=== PATIENT | female | born 1950 | race Caucasian/White ===

== ENCOUNTER → 2018-04-06 01:49 | Outpatient (CLI) | payer OTHER, MEDICAID, SELFPAY ==
--- NOTE | 2018-04-06 12:58 | DI.REPORT_ITS ---
SYMPTOM/DIAGNOSIS: SCREENING, Z12.39 MAMMOGRAM Mammograms were interpreted according to the usual protocol including computer analysis with CAD system, tomosynthesis and C view imaging. Breast tissue is of moderate radiodensity. There is no evidence of a mass. There are no suspicious calcifications. There has been no significant interval change when compared with prior images. SUMMARY: No evidence of malignancy. Category 1-B. Yearly screening mammography is recommended. [facility] ASSESSMENT OF FINDINGS: Negative. Category 1. Patient will receive a letter notifying them of these results. BI-RADS category B. There are scattered areas of fibroglandular density.
== END ==
PROVIDERS: PCP Nurse Practitioner; Visit Provider Nurse Practitioner
DX: Z12.31 Encounter for screening mammogram for malignant neoplasm of breast (principal)
CPT/HCPCS: 77063; 77067

== ENCOUNTER → 2018-04-18 13:57 | Outpatient (CLI) | payer OTHER, MEDICAID, SELFPAY ==
--- NOTE | 2018-04-18 14:07 | DI.REPORT_ITS ---
SYMPTOMS/DIAGNOSIS: COUGH, R05 PA AND LATERAL CHEST: Comparison is made with [id number]. The heart size is within normal limits. The lungs are clear. No infiltrate or effusion is seen. There is no evidence of pulmonary edema. There is lower cervical, upper thoracic scoliosis as well as degenerative changes. IMPRESSION: No acute abnormality.
== END ==
PROVIDERS: PCP Nurse Practitioner; Visit Provider Nurse Practitioner
DX: R05 Cough (principal)
CPT/HCPCS: 71046

== ENCOUNTER 2019-05-23 11:32 | Outpatient (REF) | payer OTHER, MEDICAID, SELFPAY ==
[2019-05-23 20:56] LABS: ALT 60 U/L (14-59); AST 23 U/L (15-37); Albumin 3.5 g/dL (3.4-5.0); Alkaline Phosphatase 99 U/L (46-116); Anion Gap 11.9 mmol/L (3-11); BUN 21 mg/dL (7-18); Bilirubin, Total 0.3 mg/dL (0.2-1.0); CO2 27.1 mmol/L (21.0-32.0); CREATININE 0.89 mg/dL (0.55-1.02); Calcium 8.8 mg/dL (8.5-10.1); Calculated LDL 124 mg/dL; Chloride 102 mmol/L (98-107); Cholesterol 216 mg/dL (50-200); Glucose 105 mg/dL (70-100); HDL Cholesterol 71 mg/dL (40-60); Potassium 3.1 mmol/L (3.5-5.1); Sodium 141 mmol/L (136-145); Total Protein 7.3 g/dL (6.4-8.2); Triglyceride 106 mg/dL (30-150)
== END 2019-05-23 11:52 ==
LOC: NCHCN 11:32
PROVIDERS: PCP Nurse Practitioner; Visit Provider Nurse Practitioner
DX: I10 Essential (primary) hypertension (principal); E78.5 Hyperlipidemia, unspecified; Z13.29 Encounter for screening for other suspected endocrine disorder
CPT/HCPCS: 80053; 80061; 84443

== ENCOUNTER 2019-06-21 00:56 | Outpatient (CLI) | payer OTHER, MEDICAID, SELFPAY ==
--- NOTE | 2019-06-21 08:00 | DI.MAMMO_ITS ---
EXAM: MAMMO SCREENING CLINICAL HISTORY: SCREENING, Z12.39. TECHNIQUE: Mammograms were interpreted according to the usual protocol including computer analysis w [employer] CAD system, tomosynthesis and C-view imaging. FINDINGS: The breast tissue is of moderate radiodensity. There is no evidence of a mass. There are no suspicio us calcifications and there has been no significant interval change when compared with prior images. IMPRESSION: No evidence of malignancy, category 1. Breast density, category B. BI-RADS Cat 1 - Negative. Breast Density - Category B - Scattered areas of fibroglandular density.
== END 2019-06-21 01:16 ==
PROVIDERS: PCP Nurse Practitioner; Visit Provider Nurse Practitioner
DX: Z12.31 Encounter for screening mammogram for malignant neoplasm of breast (principal)
CPT/HCPCS: 77063; 77067

== ENCOUNTER 2019-09-20 09:10 | Outpatient (REF) | payer OTHER, MEDICAID, SELFPAY ==
[2019-09-20 12:50] LABS: Anion Gap 8.3 mmol/L (3-11); BUN 12 mg/dL (7-18); CO2 29.7 mmol/L (21.0-32.0); CREATININE 0.74 mg/dL (0.55-1.02); Calcium 8.6 mg/dL (8.5-10.1); Chloride 104 mmol/L (98-107); Glucose 95 mg/dL (74-106); Potassium 3.9 mmol/L (3.5-5.1); Sodium 142 mmol/L (136-145)
[2019-09-20 13:17] LABS: Hemoglobin A1C 5.7 % (3.8-5.6)
== END 2019-09-20 09:30 ==
LOC: NCHCN 09:10
PROVIDERS: PCP Nurse Practitioner; Visit Provider Nurse Practitioner Family
DX: E87.6 Hypokalemia (principal); R73.03 Prediabetes
CPT/HCPCS: 80048; 83036

== ENCOUNTER 2020-08-06 01:19 | Outpatient (CLI) | payer OTHER, MEDICAID, SELFPAY ==
--- NOTE | 2020-08-06 | DI.MAMMO_ITS ---
EXAM: MG MAMMO SCREENING CLINICAL HISTORY: SCREENING,Z12.39. TECHNIQUE: Bilateral full field digital CC and MLO mammographic images were obtained with 3D tomosyn thesis and utilizing computer aided detection (CAD). COMPARISON: Prior mammograms dating back to 2010, the most recent being May 2019. FINDINGS: There are no CAD designations. There are no new dominant masses nor malignant appearing microcalcification groups. There is no new architectural distortion nor skin thickening-retraction. IMPRESSION: No radiographic evidence of malignancy. BI-RADS Category 1 - Negative Breast Density - Category A - Almost entirely fatty Breast density Category C or D implies that the patient has dense breast tissue. Dense breast tissue can make it harder to find cancer on a mammogram. Dense breast tissue is also associated with an incr eased risk of breast cancer. This information about the result of the mammogram report was provided to the patient to raise their awareness. Use this report when you speak with the patient about their risks for breast cancer, which includes their family history. At that time, you may recommend additional screening tests (Ultrasoun d or MRI) as these tests may add significant information. A negative radiographic report should not delay biopsy if a dominant or clinically suspicious mass is present. Up to ten percent of cancers are not identified on mammography. A negative report may reinforce clinical impression. Adenosis and dense breasts may obscure an underlying neoplasm. False positive reports average 6 to 10%. Patient will receive a letter notifying them of these results.
== END 2020-08-06 01:39 ==
PROVIDERS: PCP Nurse Practitioner; Visit Provider Nurse Practitioner
DX: Z12.31 Encounter for screening mammogram for malignant neoplasm of breast (principal)
CPT/HCPCS: 77063; 77067

== ENCOUNTER 2021-08-26 00:12 | Outpatient (CLI) | payer MEDICARE, MEDICAID, SELFPAY ==
--- NOTE | 2021-08-26 12:02 | DI.MAMMO_ITS ---
Exam(s) MAMMO SCREENING EXAM: MAMMO SCREENING CLINICAL HISTORY: SCREENING FOR BREAST CANCER Z12.39. TECHNIQUE: Bilateral full field digital CC and MLO mammographic images were obtained with 3D tomosyn thesis and utilizing computer aided detection (CAD). COMPARISON: Prior mammograms dating back to 2011, the most recent being July 2020. FINDINGS: There are no new spiculated masses nor malignant appearing microcalcification groups. There is no significant architectural distortion nor skin thickening-retraction. IMPRESSION: No radiographic evidence of malignancy. BI-RADS Category 1 - Negative Breast Density - Category B - Scattered areas of fibroglandular density Breast density Category C or D implies that the patient has dense breast tissue. Dense breast tissue can make it harder to find cancer on a mammogram. Dense breast tissue is also associated with an incr eased risk of breast cancer. This information about the result of the mammogram report was provided to the patient to raise their awareness. Use this report when you speak with the patient about their risks for breast cancer, which includes their family history. At that time, you may recommend additional screening tests (Ultrasoun d or MRI) as these tests may add significant information. A negative radiographic report should not delay biopsy if a dominant or clinically suspicious mass is present. Up to ten percent of cancers are not identified on mammography. A negative report may reinforce clinical impression. Adenosis and dense breasts may obscure an underlying neoplasm. False positive reports average 6 to 10%. Patient will receive a letter notifying them of these results.
== END 2021-08-26 00:32 ==
PROVIDERS: PCP Nurse Practitioner; Visit Provider Nurse Practitioner
DX: Z12.31 Encounter for screening mammogram for malignant neoplasm of breast (principal)
CPT/HCPCS: 77063; 77067

== ENCOUNTER 2022-03-02 10:52 | Outpatient (REF) | payer MEDICARE, MEDICAID, SELFPAY ==
[2022-03-02 16:00] LABS: Anion Gap 7.6 mmol/L (3-11); BUN 20 mg/dL (7-18); CO2 29.4 mmol/L (21.0-32.0); CREATININE 0.7 mg/dL (0.55-1.02); Calcium 8.9 mg/dL (8.5-10.1); Calculated LDL 39 mg/dL (<100); Chloride 104 mmol/L (98-107); Cholesterol 126 mg/dL (<200); Glucose 104 mg/dL (74-106); HDL Cholesterol 78 mg/dL (40-60); Potassium 3.4 mmol/L (3.5-5.1); Sodium 141 mmol/L (136-145); Triglyceride 46 mg/dL (<150)
[2022-03-02 18:39] LABS: Hemoglobin A1C 5.8 % (<5.7)
== END 2022-03-02 10:53 | disposition home or self-care (01) ==
LOC: NCHCN 10:52
PROVIDERS: PCP Nurse Practitioner; Visit Provider Nurse Practitioner Family
DX: R73.03 Prediabetes (principal); I10 Essential (primary) hypertension; E78.5 Hyperlipidemia, unspecified
CPT/HCPCS: 80048; 80061; 83036

== ENCOUNTER 2022-08-31 01:31 | Outpatient (CLI) | payer MEDICARE, MEDICAID, SELFPAY ==
--- NOTE | 2022-08-31 | DI.MAMMO_ITS ---
Exam(s) MAMMO SCREENING EXAM: MAMMO SCREENING CLINICAL HISTORY: SCREENING FOR BREAST CANCER Z12.39. TECHNIQUE: Bilateral full field digital CC and MLO mammographic images were obtained with 3D tomosyn thesis and utilizing computer aided detection (CAD). COMPARISON: Prior mammograms were reviewed. FINDINGS: There has been no significant change in the appearance and distribution of the fibroglandular tissue. There are no new spiculated masses nor malignant appearing microcalcification groups. Benign-appearing microcalcifications in the left breast are noted. There is no significant architectural distortion nor skin thickening-retraction. IMPRESSION: No radiographic evidence of malignancy. BI-RADS Category 2 - Benign Findings Breast Density - Category B - Scattered areas of fibroglandular density Breast density Category C or D implies that the patient has dense breast tissue. Dense breast tissue can make it harder to find cancer on a mammogram. Dense breast tissue is also associated with an incr eased risk of breast cancer. This information about the result of the mammogram report was provided to the patient to raise their awareness. Use this report when you speak with the patient about their risks for breast cancer, which includes their family history. At that time, you may recommend additional screening tests (Ultrasoun d or MRI) as these tests may add significant information. A negative radiographic report should not delay biopsy if a dominant or clinically suspicious mass is present. Up to ten percent of cancers are not identified on mammography. A negative report may reinforce clinical impression. Adenosis and dense breasts may obscure an underlying neoplasm. False positive reports average 6 to 10%. Patient will receive a letter notifying them of these results.
== END 2022-08-31 01:51 ==
LOC: DI 01:32
PROVIDERS: PCP Nurse Practitioner; Visit Provider Nurse Practitioner Family
DX: Z12.31 Encounter for screening mammogram for malignant neoplasm of breast (principal)
CPT/HCPCS: 77063; 77067

== ENCOUNTER 2023-03-29 11:46 | Outpatient (REF) | payer MEDICARE, MEDICAID, SELFPAY ==
[2023-03-29 19:02] LABS: Hemoglobin A1C 5.8 % (<5.7)
[2023-03-29 21:09] LABS: ALT 26 U/L (14-59); AST 19 U/L (15-37); Albumin 3.7 g/dL (3.4-5.0); Alkaline Phosphatase 65 U/L (46-116); Anion Gap 8.5 mmol/L (3-11); BUN 24 mg/dL (7-18); Bilirubin, Total 0.6 mg/dL (0.2-1.0); CO2 25.5 mmol/L (21.0-32.0); CREATININE 0.8 mg/dL (0.55-1.02); Calcium 9.1 mg/dL (8.5-10.1); Calculated LDL 54 mg/dL (<100); Chloride 106 mmol/L (98-107); Cholesterol 145 mg/dL (<200); Estimated GFR 78.72 (mL/min/1.73m2); Glucose 99 mg/dL (74-106); HDL Cholesterol 82 mg/dL (40-60); Potassium 3.9 mmol/L (3.5-5.1); Sodium 140 mmol/L (136-145); Triglyceride 48 mg/dL (<150)
== END 2023-03-29 11:47 | disposition home or self-care (01) ==
LOC: NCHCN 11:46
PROVIDERS: PCP Nurse Practitioner; Visit Provider Nurse Practitioner Family
DX: I10 Essential (primary) hypertension (principal); R73.03 Prediabetes; E87.6 Hypokalemia
CPT/HCPCS: 80053; 80061; 83036

== ENCOUNTER → 2023-04-29 00:48 | Outpatient (CLI) | payer MEDICARE, MEDICAID, SELFPAY ==
--- NOTE | 2023-04-29 14:30 | DI.DEXA_ITS ---
Exam(s) XR DEXA BONE DENSITY W/WO GILBERT EXAM: XR DEXA BONE DENSITY W/WO GILBERT CLINICAL HISTORY: OSTEOPENIA, M85.80, POSTMENOPAUSAL Z78.0 TECHNIQUE: COMPARISON: DX DEXA BONE DENSITY WITH GILBERT from 09/21/2016 FINDINGS: Lateral Spine Image: Unremarkable. No compression deformities identified. Left hip: Total T-Score: -1.8. This compares to -1.2 on the prior examination. Total Z-Score: -0.2 T- and Z-scores: Findings are consistent with osteopenia. Lumbar Spine: Total T-Score: -2.3. This compares to -2.4 on the prior examination. Total Z-Score: -0.1 T- and Z-scores: Findings are consistent with osteopenia. Note is made of osteoporosis in the L2 and L3 vertebral bodies with T-scores of -2.7 and -3.0 respectively. IMPRESSION: Osteoporosis in the L2 and L3 vertebral bodies.
== END ==
PROVIDERS: PCP Nurse Practitioner; Visit Provider Nurse Practitioner Family
DX: Z78.0 Asymptomatic menopausal state (principal); Z13.820 Encounter for screening for osteoporosis; M81.0 Age-related osteoporosis without current pathological fracture
CPT/HCPCS: 77080

== ENCOUNTER → 2023-08-04 13:56 | Outpatient (CLI) | payer MEDICARE, MEDICAID, SELFPAY ==
--- NOTE | 2023-08-04 | DI.US_ITS ---
Exam(s) US LOWER EXTREMITY VENOUS LT EXAM: US LOWER EXTREMITY VENOUS LT CLINICAL HISTORY: PAIN LT LEG, M79.605,? THROMBOSIS VS THROMBOPHLEBITIS. TECHNIQUE: Lower extremity venous ultrasound performed using grayscale, color-flow, and spectral Do ppler analysis. COMPARISON: No exams were available for comparison FINDINGS: The common femoral, femoral and popliteal veins demonstrate normal compressibility, augmentation, and color Doppler. The posterior tibial veins are patent. The saphenous vein shows thrombus extending f rom the proximal calf through the saphenofemoral junction. Other thrombosed varicose veins are also present in the distal thigh.. No hematoma or Lazaro's cyst is seen. 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 No deep venous thrombosis.. DATA REPOSITORY:
== END ==
PROVIDERS: PCP Nurse Practitioner Family; Visit Provider Physician Assistant Medical
DX: I82.812 Embolism and thrombosis of superficial veins of left lower extremity (principal); M79.605 Pain in left leg
CPT/HCPCS: 93971

== ENCOUNTER 2023-08-04 15:12 | Outpatient (CLI) | payer MEDICARE, MEDICAID, SELFPAY ==
[2023-08-04 12:51] LABS: Abs Immature Grans 0.01 10^3/uL (0.0-0.06); Absolute Basophil Count 0.03 10^3/uL (0.0-0.2); Absolute Eosinophil Count 0.08 10^3/uL (0.0-0.7); Absolute Monocyte Count 0.61 10^3/uL (0.1-0.8); Absolute Neutrophil Count 4.64 10^3/uL (1.2-6.7); Basophils % 0.4; Eosinophils % 1.1; HCT 39.3 % (36.0-46.0); HGB 12.9 g/dL (11.2-15.7); Immature Grans % 0.1; Lymphocytes % 25.1; MCHC 32.8 % (32.0-36.0); MCV 82 fL (80-95); MPV 10.2 fL (8.0-11.0); Monocytes % 8.5; Neutrophils % 64.8; Platelet Count 201 10^3/uL (130-400); RBC 4.78 10^6/uL (3.93-5.22); RDW 12.3 % (11.7-14.6); RDW-SD 37.4 fL; WBC 7.17 10^3/uL (4.4-10.8)
[2023-08-04 13:09] LABS: ALT 34 U/L (14-59); AST 15 U/L (15-37); Albumin 3.6 g/dL (3.4-5.0); Alkaline Phosphatase 99 U/L (46-116); Anion Gap 11.2 mmol/L (3-11); BUN 25 mg/dL (7-18); Bilirubin, Total 0.4 mg/dL (0.2-1.0); CO2 28.8 mmol/L (21.0-32.0); CREATININE 0.8 mg/dL (0.55-1.02); Calcium 9.7 mg/dL (8.5-10.1); Chloride 102 mmol/L (98-107); Estimated GFR 78.24 (mL/min/1.73m2); Glucose 111 mg/dL (74-106); Potassium 4.1 mmol/L (3.5-5.1); Sodium 142 mmol/L (136-145)
== END 2023-08-04 15:13 | disposition home or self-care (01) ==
LOC: LBO 15:12
PROVIDERS: PCP Nurse Practitioner Family; Visit Provider Physician Assistant Medical
DX: M79.605 Pain in left leg (principal)
CPT/HCPCS: 36415; 80053; 85025

== ENCOUNTER → 2023-09-28 01:16 | Outpatient (CLI) | payer MEDICARE, MEDICAID, SELFPAY ==
--- NOTE | 2023-09-28 | DI.MAMMO_ITS ---
Exam(s) MAMMO SCREENING EXAM: MAMMO SCREENING CLINICAL HISTORY: SCREENING,Z12.39 TECHNIQUE: Bilateral full field digital CC and MLO mammographic images were obtained with 3D tomosyn thesis and utilizing computer aided detection (CAD). COMPARISON: Available for comparison. FINDINGS: Masses/Architectural Distortion: There is a new 4 mm nodule in the medial right breast appreciated on the CC view 7 cm from the nipple. No areas of architectural distortion are seen. Microcalcifications: No suspicious pleomorphic-type are seen. Skin Thickening/Nipple Retraction: None. IMPRESSION: 1. New right breast nodule. 2. Spot compression views requested for further evaluation. Limited right breast ultrasound may be r equired at that time. BI-RADS Category 0 - Assessment Incomplete: Need additional imaging evaluation Breast Density - Category B - Scattered areas of fibroglandular density Breast density category C or D implies that the patient has dense breast tissue. Dense breast tissue is very common and is not abnormal but dense breast tissue can make it harder to find cancer on a ma mmogram. Also, dense breast tissue may increase their breast cancer risk. This information about the result of the mammogram report was provided to the patient to raise their awareness. Use this report when you speak with the patient about their risks for breast cancer, which includes their family hist ory. At that time, you may recommend for more screening tests (Ultrasound or MRI) as they might be us eful based on their risk. A negative radiographic report should not delay biopsy if a dominant or clinically suspicious mass is present. Up to ten percent of cancers are not identified on mammography. A negative report may reinforce clinical impression. Adenosis and dense breasts may obscure an underlying neoplasm. False positive reports average 6 to 10%. Patient will receive a letter notifying them of these results.
== END ==
PROVIDERS: PCP Nurse Practitioner Family; Visit Provider Nurse Practitioner Family
DX: Z12.31 Encounter for screening mammogram for malignant neoplasm of breast (principal); R92.8 Other abnormal and inconclusive findings on diagnostic imaging of breast
CPT/HCPCS: 77063; 77067

== ENCOUNTER → 2023-09-29 10:26 | Outpatient (CLI) | payer MEDICARE, MEDICAID, SELFPAY ==
--- NOTE | 2023-09-29 | DI.US_ITS ---
Exam(s) MG MAMMO SCREEN CALL BACK UNI US BREAST RT COMPLETE EXAM: MG MAMMO SCREEN CALL BACK UNI-RIGHT AND COMPLETE RIGHT BREAST ULTRASOUND CLINICAL HISTORY: F/U ABNL MAMMO, NEW RT BREAST NODULE, R92.8. TECHNIQUE: Unilateral spot mammographic images obtained with 3D tomosynthesisand utilizing computer aided detection (CAD). . Complete RIGHT breast Ultrasound was also performed, including all 4 quadrants, the retroareolar [place] on, and the ipsilateral axilla. COMPARISON: Prior mammograms were reviewed. This additional imaging was performed due to findings described on the recent screening mammogram of 09/28/2023. FINDINGS: DIAGNOSTIC MAMMOGRAM: Additional mammographic views performed todaydo not completely dissipate this small finding. COMPLETE RIGHT BREAST ULTRASOUND: Ultrasound performed today reveals no evidence of solid or significant cystic lesions in all 4 quadra nts.. Scanning of the ipsilateral axilla reveals no significant adenopathy. IMPRESSION: 1. Benign-appearing findings. Given lack of visualization of the small benign-appearing nodule on u ltrasound it may represent a benign intramammary lymph node. Appropriate follow-up as discussed by myself with the patient today is repeat right breast mammogram in 6 months. The patient was informed of these findings and recommendations by myself prior to leaving the departm ent today. BI-RADS Category 3 - 6 month - Probably Benign Finding: Recommend follow-up mammography in 6 months Breast Density - Category B - Scattered areas of fibroglandular density Breast density Category C or D implies that the patient has dense breast tissue. Dense breast tissue can make it harder to find cancer on a mammogram. Dense breast tissue is also associated with an incr eased risk of breast cancer. This information about the result of the mammogram report was provided to the patient to raise their awareness. Use this report when you speak with the patient about their risks for breast cancer, which includes their family history. At that time, you may recommend additional screening tests (Ultrasoun d or MRI) as these tests may add significant information. A negative radiographic report should not delay biopsy if a dominant or clinically suspicious mass is present. Up to ten percent of cancers are not identified on mammography. A negative report may reinforce clinical impression. Adenosis and dense breasts may obscure an underlying neoplasm. False positive reports average 6 to 10%. Patient will receive a letter notifying them of these results.
== END ==
PROVIDERS: PCP Nurse Practitioner Family; Visit Provider Nurse Practitioner Family
DX: Z12.31 Encounter for screening mammogram for malignant neoplasm of breast (principal); R92.8 Other abnormal and inconclusive findings on diagnostic imaging of breast
CPT/HCPCS: 76642; 77063; 77067

== ENCOUNTER → 2023-11-17 03:05 | Outpatient (CLI) | payer MEDICARE, MEDICAID, SELFPAY ==
--- NOTE | 2023-11-17 | DI.RAD_ITS ---
Exam(s) XR HIP RT COMPLETE AP PELVIS EXAM: XR HIP RT COMPLETE AP PELVIS CLINICAL HISTORY: RT HIP PAIN, M25.551. TECHNIQUE: 2D digital imaging was performed. Two views COMPARISON: No exams were available for comparison FINDINGS: BONES: No acute fracture is present. No bony destructive lesion is seen. JOINTS: No dislocation present. The joint spaces are maintained. Minimal periarticular spurring. S I joints show minimal degenerative changes. Pubic symphysis is unremarkable. SOFT TISSUE: Normal. IMPRESSION: No acute abnormality. Minimal degenerative changes. DATA REPOSITORY: RADIATION DOSE DELIVERED:
== END ==
PROVIDERS: PCP Nurse Practitioner Family; Visit Provider Nurse Practitioner Family
DX: M25.551 Pain in right hip (principal)
CPT/HCPCS: 73502

== ENCOUNTER 2023-11-25 10:10 | Day surgery (SDC) | payer MEDICARE, MEDICAID, SELFPAY ==
[2023-11-25 10:45] VITALS: BP 164/87; PULSE 87; RESP 20; TEMP 36.4; O2SAT 98
--- NOTE | 2023-11-25 11:51 | W.ANESPRE ---
General Info Date of Service Date Performed: 11/25/23 Height: 5 ft 1 in Weight: 81.6 kg Body Mass Index (BMI): 34.0 Surgical Procedure: Operation Date: 11/25/23 12:10 Proposed Procedure Side Surgeon p Cataract Extraction with IOL Implant w/Glaucoma Stent Left Reji Turner MD Meds Allergies and Home Medications Allergies Allergy/AdvReac Type Severity Reaction Status Date / Time chlorpheniramine Allergy Intermediate Hives Verified 11/25/23 10:54 [From Coricidin HBP Cough and Cold] dextromethorphan Allergy Intermediate Hives Verified 11/25/23 10:54 [From Coricidin HBP Cough and Cold] sulfamethoxazole Allergy Intermediate Skin Rash Verified 11/25/23 10:54 [From Bactrim] trimethoprim [From Bactrim] Allergy Intermediate Skin Rash Verified 11/25/23 10:54 lisinopril AdvReac Cough Verified 11/25/23 10:54 Home Medication Medication Instructions Recorded alendronate 70 mg tablet 70 mg PO DIRECTED 11/23/23 calcium carb and lactate 200 1 tab PO DAILY 11/23/23 mg-vitamin D3 6.25 mcg (250 unit) tablet hydrochlorothiazide 25 mg tablet 25 mg PO DAILY 11/23/23 latanoprost 0.005 % eye drops 1 drp ophthalmic (eye) QAM 11/23/23 losartan 25 mg tablet 25 mg PO DAILY 11/23/23 omega 3 350 mg-dha 235 mg-epa 90 1 cap PO DAILY 11/23/23 mg-fish oil 597 mg capsule,delay rel ([place]-3) rosuvastatin 20 mg tablet 20 mg PO DAILY 11/23/23 Current Visit Medications: Current Medications Generic Name Dose Route Start Last Admin Trade Name Freq PRN Reason Stop Dose Admin Acetaminophen 1,000 mg 11/25/23 06:00 Acetaminophen 500 Mg Tab PO 12/25/23 05:59 Q4H PRN PRN Balanced Salt Solution 500 ml 11/25/23 06:00 Balanced Salt Soln.-Plus 500 Ml Bag OP 12/25/23 05:59 DIRECTED ALESHIA Miscellaneous Medication 0 ml 11/25/23 06:00 Prednisolone 1%, Moxifloxacin 0.5%, Bromfenac 0.09% 5ml Btl OS 12/25/23 05:59 DIRECTED ALESHIA Miscellaneous Medication 0 ml 11/25/23 06:00 11/25/23 11:07 Tropicam./Phenyleph. (1/2.5%) 10 Ml Btl OS 12/25/23 05:59 1 drp DIRECTED ALESHIA Administration Tetracaine HCl 0 ml 11/25/23 06:00 Tetracaine 0.5% 4 Ml Btl OS 12/25/23 05:59 DIRECTED ALESHIA PFSH Active Problems Active Problems: Problem Status Onset Code Primary open angle glaucoma (POAG) of left eye, mild stage H40.1121 Nuclear age-related cataract, left eye H25.12 Allergic rhinitis due to allergen J30.9 Glaucoma H40.9 Second hand smoke exposure Z77.22 Throat clearing R68.89 Cough R05 Impacted cerumen of right ear H61.21 Post-nasal drip R09.82 Medical History Medical History Varicose veins of both lower extremities Chronic rhinitis Prediabetes Chronic cough Essential hypertension Adjustment disorder with anxious mood Hypokalemia Thrombosis of vein LE Senile osteoporosis Tobacco Smoking/Tobacco Use Status: Never Alcohol Alcohol Intake: never Substance Use Substance use: Never Substance use type: does not use Vital Signs and Lab Results Vital Signs Most Recent Vital Signs in EMR: Most Recent Vital Signs Temp Pulse Resp BP Pulse Ox 36.4 C L 87 20 164/87 H 98 11/25/23 10:45 11/25/23 10:45 11/25/23 10:45 11/25/23 10:45 11/25/23 10:45 Lab Results Blood Type / Crossmatch: No Data to Display Complete Blood Count: No Data to Display Complete Metabolic Panel: No Data to Display Liver Function Panel: No Data to Display Coagulation Panel: No Data to Display Cardiac Panel: No Data to Display Arterial Blood Gas: No Data to Display Venous Blood Gas: No Data to Display Pancreas Panel: No Data to Display Thyroid Panel: No Data to Display Infectious Disease: No Data to Display Blood Cultures: No Data to Display Toxicology Panel: No Data to Display Anesthesia Assessment and Plan Anesthesia History Personal History: No History of Anesthesia Complications Family History: No Family History of Anesthesia Complications Exercise Tolerance Exercise Tolerance: Metabolic Equivalents>4 Cardiac & Pulmonary Exam Cardiac Exam: Normal S1/S2 Heart Sounds Pulmonary Exam: Clear Bilateral Breath Sounds Implantable Cardiac Device Does patient have a Pacemaker or an ICD?: No Airway Exam Known Difficult Airway: No Mallampati Class: 1 Mouth Opening: Normal (> 3cm) Thyromental Distance: Greater than 3 cm Neck Range of Motion: Full ROM Neck Circumference: Normal Teeth Condition: Normal Dentition ASA Classification ASA Score: ASA 2 Emergency Case?: No NPO Status NPO Status: NPO Clears >2 hours, Solids >8 hours Anesthesia Plan Resuscitation Status: Full Code Anesthesia Technique: MAC Anesthesia Airway Planned: Natural Airway Monitors Used: Standard Monitors
[2023-11-25 12:07] VITALS: BMI 34.0
[2023-11-25] MEDS: Balanced Salt Soln.-PLUS 500 ML BAG OP (12:24)
[2023-11-25] MEDS: Tetracaine 0.5% 4 ML BTL OS (12:25)
[2023-11-25] MEDS: Duovisc Viscoelastic System EACH 1 EACH (12:26)
[2023-11-25] MEDS: Lidocaine 1% Pres-Free 5 ML VIAL (12:26)
[2023-11-25] MEDS: Povidone-Iodine Ophth 30 ML BTL (12:28)
[2023-11-25 12:46] VITALS: BP 154/75; PULSE 36; RESP 16; TEMP 36; O2SAT 100
--- NOTE | 2023-11-25 12:47 | PDOC.DSDIS_ITS ---
Date of service: 11/25/23 Time of Service: 12:47 Discharge Plan Disposition Patient Disposition: Home Discharge Details Attending Provider: Reji Turner Primary Care Provider: Lana Griffith Home Meds and New Rx's Prescriptions: No Action alendronate 70 mg tablet 70 mg PO DIRECTED Patient Comments: TAKE 1 TABLET BY MOUTH ONCE WEEKLY FIRST THING IN THE MORNING WITH WATER BEFORE EATING AND STAY UPRIGHT FOR 30 MINUTES hydrochlorothiazide 25 mg tablet 25 mg PO DAILY Patient Comments: TAKE ONE TABLET BY MOUTH EVERY DAY rosuvastatin 20 mg tablet 20 mg PO DAILY Patient Comments: TAKE ONE TABLET BY MOUTH EVERY DAY losartan 25 mg tablet 25 mg PO DAILY Patient Comments: TAKE ONE TABLET BY MOUTH EVERY DAY latanoprost 0.005 % drops 1 drp ophthalmic (eye) QAM Patient Comments: INSTILL 1 DROP IN EACH EYE EVERY MORNING [place]-3 350 mg-235 mg- 90 mg-597 mg capsule,delayed release(DR/EC) 1 cap PO DAILY calcium carb,lactat-vitamin D3 200 mg-6.25 mcg (250 unit) tablet 1 tab PO DAILY Discharge Instructions Stand Alone Forms: [facility] Post-Op Cataract, Matthew Guardado ([facility]) Discharge Orders Discharge Orders: Discharge Order (Routine); Ordered 11/25/23 Ordered By: Reji Turner DS: Diagnosis Discharge Diagnosis (1) Nuclear age-related cataract, left eye: Status: Resolved (2) Primary open angle glaucoma (POAG) of left eye, mild stage: Status: Chronic
--- NOTE | 2023-11-25 12:48 | W.PM.OP ---
Date of service: 11/25/23 Time of Service: 12:48 Operative Note Operative Note DATE OF PROCEDURE: 11/25/23 PRE-OP DIAGNOSIS: Nuclear cataract, left eye Primary open-angle glaucoma, left eye, mild stage POST-OP DIAGNOSIS: same PROCEDURE: Cataract extraction using phacoemulsification with intraocular lens implant, left eye Implantation of mulitple trabecular micro-bypass stents SURGEON: Reji Turner ANESTHESIA TYPE: Local By Surgeon and MAC Refer to Anesthesia Record PATHOLOGY: none sent COMPLICATIONS: None Patient was transported to: same day Patient's condition: stable Implants: Jonathon Clareon [id number] Glaukos iStents Indications: Progressive decreased vision due to cataract, left eye Primary open angle glaucoma, left eye Procedure Description: CATARACT SURGERY OPERATIVE REPORT PREOPERATIVE DIAGNOSIS: Nuclear cataract, left eye Primary open-angle glaucoma, mild stage, left eye POSTOPERATIVE DIAGNOSIS: Same OPERATION: 1. Cataract extraction using phacoemulsification with posterior chamber intraocular lens implant, left eye. 2. Insertion of multiple anterior segment aqueous drainage devices (Glaukos iStent) into trabecular meshwork, left eye IOL: IOL Medical Assistant/Model: Jonathon Clareon CCA0T0 IOL Power: + 18.0 diopters IOL Serial Number: [id number] Optic Diameter: 6.0mm Haptic/Overall Diameter: 13.0mm PHACO INFO: Jonathon Centurion Vision System with OZil and Active Fluidics Cumulative Dispersed Energy (CDE): 6.44 seconds TRABECULAR MICRO-BYPASS STENT INFO: Glaukos iStent x 3 Reference Number: iS3 Serial Number: [id number] SURGEON: Reji Turner MD, HAL ANESTHESIA: Monitored Anesthesia Care (MAC), with local sub-tenon's anesthetic infiltration COMPLICATIONS: None SPECIMENS: None INDICATIONS FOR PROCEDURE: The patient is a 73-year-old lady with history of progressive decreased vision in her left eye secondary to the development of nuclear cataract. She is significantly symptomatic that she desires cataract surgery and attempt to improve and maximize her vision. She has a history of myopia and desires to remain myopic postoperatively. She has a history of primary open-angle glaucoma, mild stage, treated with latanoprost daily. The option of trabecular micro-bypass stent at the time of cataract surgery was offered to the patient and she wished to proceed with this as well. See office notes for detailed information. PROCEDURE: The correct surgical eye was identified and marked as the left eye and the pupil was dilated in the preoperative area using mydriatics and cycloplegics. The dilated pupil size was 8.0 mm. The patient was brought to the operating room where cardiopulmonary monitoring was instituted and surgical time-out was performed, confirming the correct operative eye and IOL power. Topical anesthesia was administered and ophthalmic povidone-iodine 5% was instilled into the conjunctival fornices. The gume-ocular area was prepped with Betadine 10% solution and draped in the usual sterile fashion for intraocular surgery, including an aperture drape. A Tegaderm transparent film dressing was cut in half and used to cover the lashes and lid margins. Care was taken to sequester the lashes and lid margins under the Tegaderm dressing. A lid speculum was placed between the lids of the operative eye and the Jonathon LuxOR Revalia operating microscope was maneuvered into position. Anson scissors were then used to make a conjunctival buttonhole approximately 6mm posterior to the limbus in the inferonasal quadrant. Blunt dissection was carried out to expose bare sclera, and a blunt-tipped sub-tenon?s anesthesia cannula was introduced and passed posteriorly along the globe where non-preserved plain lidocaine was injected into posterior sub-Tenon?s space. A sideport knife was used to make a paracentesis port superiorly/superiortemporally. Intraocular phenylephrine/lidocaine was injected into the anterior chamber. The anterior chamber was then filled with viscoelastic. A keratome knife was used to construct a clear corneal tunnel extending 2.0mm into clear cornea. . A flap was raised on the anterior capsule and capsulorhexis forceps were used to complete a continuous curvilinear capsulorhexis of 5.5 mm. Balanced salt solution was then used to perform cortical cleaving hydrodissection and nuclear hydrodelineation until the lens could be freely rotated within the capsular bag. The lens nucleus was then disassembled and removed within the capsular bag and iris plane using phacoemulsification. Residual cortical material was removed using the 45-degree angled silicone I/A tip with 0.3mm port. The posterior capsule was carefully polished to remove as much residual lens epithelial cells as safely possible. The capsular bag was then inflated and the anterior chamber deepened with viscoelastic. The lens implant described above was inserted into the capsular bag using the Jonathon Autonome pre-loaded injector. A Kuglen hook was used to dial the IOL into position. The anterior chamber was then slightly over-filled with viscoelastic. The microsope and the patient's head were tilted into the ideal position for viewing of the anterior chamber angle. Viscoelastic was placed on the cornea followed by a surgical gonionlens, and the anterior chamber angle landmarks were identified. The [employer] iStent injection handpiece was introduced into the anterior chamber and the insertion sleeve was retracted. The trocar was advanced through the central portion of the trabecular meshwork and into the back wall of Schlemm's canal in the nasal quadrant, with care taken to ensure the micro-insertion tube was perpendicular to the trabecular meshwork. The trabecular meshwork was lightly dimpled and the stent was injected without difficulty. The same procedure was then performed in the inferiornasal quradrant. A third stent was then injected into the superiornasal quadrant. The stents were then examined and noted to be in good position within the trabecular meshwork. A moderate amount of blood reflux was present through the stent apertures. The microscope and the patients head were returned to the normal coaxial position. Viscoelatic was then removed from the anterior chamber using the I/A handpiece. Blanching of the deep conjunctival vessels was noted nasally during removal of viscoelastic. Some hemorrhage had migrated into the anterior vitreous. The lens implant was noted to center nicely within the capsular bag. The incisions were stromally hydrated, and the anterior chamber was reformed using BSS. Then 0.5cc of moxifloxacin 1.0mg/ml were injected into the capsular bag and anterior chamber. The incisions were checked with a Weck spear and found to be secure. Several drops of ophthalmic povidone-iodine 5% were then applied to the eye followed by two drops of Imprimis combination prednisolone/moxifloxacin/nepafenac solution. The drapes were removed and a clear plastic protective eye shield was placed over the eye. The patient was then returned to Same Day Surgery in stable condition..
--- NOTE | 2023-11-25 13:54 | W.ANESPOSTOP ---
Postoperative Evaluation Date, Time and Location Date Performed: 11/25/23 Time Performed: 12:50 Patient Location: Day Surgery Unit Vital Signs Most Recent Imported Vital Signs: Most Recent Vital Signs Temp Pulse Resp BP Pulse Ox 36 C L 36 L 16 154/75 H 100 11/25/23 12:46 11/25/23 12:46 11/25/23 12:46 11/25/23 12:46 11/25/23 12:46 Pain Score Most Recent Pain Score: Most Recent Pain Score Pain Level 0 11/25/23 12:46 Assessment Mental Status: Awake (Alert & Oriented to Patient Baseline) Airway and Respiratory Function: Patent airway with normal (patient baseline) respiratory exam Cardiovascular Function: Hemodynamically Stable Hydration Status: Adequately Hydrated Nausea & Vomiting: No Nausea or Vomiting Pain: Pt. Denies Any Pain Peripheral Nerve Block: Patient did not receive a nerve block
== END 2023-11-25 12:58 | disposition home or self-care (01) ==
LOC: SUR 10:10
PROVIDERS: PCP Nurse Practitioner Family; Visit Provider Ophthalmology
PROC: (CPT 66991; principal; 2023-11-25 12:00)
DX: H25.12 Age-related nuclear cataract, left eye (principal); H40.1121 Primary open-angle glaucoma, left eye, mild stage
CPT/HCPCS: 66991; 00123; V2632; J2003

== ENCOUNTER 2024-03-14 11:57 | Outpatient (REF) | payer MEDICARE, MEDICAID, SELFPAY ==
[2024-03-14 16:43] LABS: Abs Immature Grans 0.01 10^3/uL (0.0-0.06); Absolute Basophil Count 0.03 10^3/uL (0.0-0.2); Absolute Eosinophil Count 0.07 10^3/uL (0.0-0.7); Absolute Lymphocyte Count 1.71 10^3/uL (1.2-3.4); Absolute Monocyte Count 0.26 10^3/uL (0.1-0.8); Absolute Neutrophil Count 2.38 10^3/uL (1.2-6.7); Basophils % 0.7 %; Eosinophils % 1.6 %; HCT 38.8 % (36.0-46.0); Immature Grans % 0.2 %; Lymphocytes % 38.3 %; MCH 27.5 pg (27.0-33.0); MCHC 33.5 % (32.0-36.0); MCV 82 fL (80-95); MPV 11.4 fL (8.0-11.0); Monocytes % 5.8 %; Neutrophils % 53.4 %; Platelet Count 174 10^3/uL (130-400); RBC 4.73 10^6/uL (3.93-5.22); RDW-SD 39.1 fL; WBC 4.46 10^3/uL (4.4-10.8)
[2024-03-14 17:29] LABS: ALT 30 U/L (14-59); AST 19 U/L (15-37); Albumin 3.7 g/dL (3.4-5.0); Alkaline Phosphatase 55 U/L (46-116); Anion Gap 7.6 mmol/L (3-11); BUN 26 mg/dL (7-18); Bilirubin, Total 0.56 mg/dL (0.2-1.0); CO2 28.4 mmol/L (21.0-32.0); CREATININE 0.8 mg/dL (0.55-1.02); Calcium 8.8 mg/dL (8.5-10.1); Calculated LDL 44 mg/dL (<100); Chloride 107 mmol/L (98-107); Cholesterol 135 mg/dL (<200); Estimated GFR 78.24 (mL/min/1.73m2); Glucose 103 mg/dL (74-106); HDL Cholesterol 83 mg/dL (40-60); Potassium 3.5 mmol/L (3.5-5.1); Sodium 143 mmol/L (136-145); Total Protein 7.1 g/dL (6.4-8.2); Triglyceride 42 mg/dL (<150)
[2024-03-14 20:22] LABS: Hemoglobin A1C 5.8 % (<5.7)
== END 2024-03-14 11:58 | disposition home or self-care (01) ==
LOC: NCHCN 11:57
PROVIDERS: Visit Provider Nurse Practitioner Family
DX: I10 Essential (primary) hypertension (principal); E78.5 Hyperlipidemia, unspecified; R73.03 Prediabetes
CPT/HCPCS: 80053; 80061; 83036; 85025

== ENCOUNTER → 2024-03-29 02:16 | Outpatient (CLI) | payer MEDICARE, MEDICAID, SELFPAY ==
--- NOTE | 2024-03-29 | DI.MAMMO_ITS ---
Exam(s) MG MAMMO DIAGNOSTIC UNI EXAM: MG MAMMO DIAGNOSTIC UNI CLINICAL HISTORY: 6-mo f/u abnl mammo, R92.8, rt side TECHNIQUE: Cc and MLO mammogram images were performed according to the usual protocol including computer analysis with CAD system, tomosynthesis and C-view imaging. COMPARISON: 2016 through 28 September 2023. FINDINGS: The breast is composed of scattered fibroglandular densities, Breast Density category B. No suspicious masses or suspicious microcalcifications are seen. Previously question tiny nodule in the medial right breast no longer appreciated. No skin thickening or abnormal axillary lymph nodes are seen. IMPRESSION: BI-RADS Category 1, Negative mammogram Yearly screening mammography is recommended, due in 6 months. Breast Density - Category B, scattered fibroglandular densities. A negative radiographic report should not delay biopsy if a dominant or clinically suspicious mass is present. Up to ten percent of cancers are not identified on mammography. A negative report may reinforce clinical impression. Adenosis and dense breasts may obscure an underlying neoplasm. False positive reports average 6 to 10%. Patient will receive a letter notifying them of these results.
== END ==
PROVIDERS: Visit Provider Nurse Practitioner Family
DX: R92.8 Other abnormal and inconclusive findings on diagnostic imaging of breast (principal)
CPT/HCPCS: 77061; 77065; G0279

== ENCOUNTER 2024-09-11 14:12 | Outpatient (REF) | payer MEDICARE, MEDICAID, SELFPAY ==
[2024-09-11 19:08] LABS: Hemoglobin A1C 5.6 % (<5.7)
[2024-09-11 19:10] LABS: ALT 40 U/L (14-59); AST 22 U/L (15-37); Albumin 3.7 g/dL (3.4-5.0); Alkaline Phosphatase 66 U/L (46-116); BUN 25 mg/dL (7-18); Bilirubin, Total 0.67 mg/dL (0.2-1.0); CREATININE 0.9 mg/dL (0.55-1.02); Calcium 9.3 mg/dL (8.5-10.1); Calculated LDL 80 mg/dL (<100); Chloride 106 mmol/L (98-107); Cholesterol 180 mg/dL (<200); Glucose 100 mg/dL (74-106); HDL Cholesterol 89 mg/dL (40-60); Potassium 3.8 mmol/L (3.5-5.1); Sodium 139 mmol/L (136-145); Total Protein 7.2 g/dL (6.4-8.2); Triglyceride 55 mg/dL (<150)
== END 2024-09-11 14:13 | disposition home or self-care (01) ==
LOC: NCHCN 14:12
PROVIDERS: PCP Nurse Practitioner Family; Visit Provider Nurse Practitioner Family
DX: E78.5 Hyperlipidemia, unspecified (principal)
CPT/HCPCS: 80053; 80061; 83036

== ENCOUNTER → 2024-09-26 09:12 | Outpatient (BNVA) | payer MEDICARE, MEDICAID, SELFPAY | PROVIDERS: PCP Nurse Practitioner Family; Referring Provider Nurse Practitioner Family; Visit Provider Podiatrist | DX: M21.611 Bunion of right foot (principal); M21.612 Bunion of left foot; M20.41 Other hammer toe(s) (acquired), right foot; M20.42 Other hammer toe(s) (acquired), left foot; L84 Corns and callosities; L60.3 Nail dystrophy; M67.01 Short Achilles tendon (acquired), right ankle; M67.02 Short Achilles tendon (acquired), left ankle; B35.1 Tinea unguium | CPT/HCPCS: 99204 ==

== ENCOUNTER 2024-09-26 09:49 | Outpatient (CLI) | payer MEDICARE, MEDICAID, SELFPAY ==
--- NOTE | 2024-09-26 09:50 | DI.RAD_ITS ---
Exam(s) XR FOOT RT COMPLETE EXAM: XR FOOT RT COMPLETE CLINICAL HISTORY: bunion rt foot, M21.611. TECHNIQUE: 2D digital imaging was performed of the right foot. Three images were obtained. AP, obl ique and lateral views were obtained. COMPARISON: No exams were available for comparison FINDINGS: BONES: No acute fracture is present. No bony destructive lesion is seen. There is an enthesophyte at the posterior calcaneus. There is a small plantar calcaneal spur. JOINTS: No dislocation present. There is a hallux valgus deformity. There is overlapping of the 1st and 2nd toes. Hammertoe deformities of the 2nd through 5th toes are noted. There are degenerative c hanges of the foot predominantly at the 1st MTP joint and the 1st tarsometatarsal joint. SOFT TISSUE: Normal. IMPRESSION: Degenerative changes of the foot, hallux valgus deformity and hammertoe deformities. DATA REPOSITORY: RADIATION DOSE DELIVERED:
--- NOTE | 2024-09-26 09:50 | DI.RAD_ITS ---
Exam(s) XR FOOT LT COMPLETE EXAM: XR FOOT LT COMPLETE CLINICAL HISTORY: Randal, lt foot, M21.612. TECHNIQUE: 2D digital imaging was performed of the left foot. Three images were obtained. AP, obli que and lateral views were obtained. COMPARISON: No exams were available for comparison FINDINGS: BONES: No acute fracture is present. No bony destructive lesion is seen. There are hammertoe deformit ies seen of the 2nd and 3rd toes. There is an enthesophyte at the posterior calcaneus. There is a s mall plantar calcaneal spur. JOINTS: No dislocation present. There is a hallux valgus deformity. Degenerative changes are seen in the foot particularly at the 1st MTP joint and the 3rd tarsometatarsal joint. SOFT TISSUE: Normal. IMPRESSION: Hallux valgus deformity, hammertoe deformities and degenerative changes. DATA REPOSITORY: RADIATION DOSE DELIVERED:
== END 2024-09-26 10:09 ==
PROVIDERS: PCP Nurse Practitioner Family; Visit Provider Podiatrist
DX: M20.12 Hallux valgus (acquired), left foot (principal); M19.071 Primary osteoarthritis, right ankle and foot
CPT/HCPCS: 73630

== ENCOUNTER 2024-10-01 00:37 | Outpatient (CLI) | payer MEDICARE, MEDICAID, SELFPAY ==
--- NOTE | 2024-10-01 | DI.MAMMO_ITS ---
Exam(s) MAMMO SCREENING EXAM: MAMMO SCREENING CLINICAL HISTORY: Screening, Z12.31 TECHNIQUE: Mammograms were interpreted according to the usual protocol including computer analysis w [employer] CAD system, tomosynthesis and C-view imaging. COMPARISON: 2016 through 2023 FINDINGS: The breasts are composed of scattered fibroglandular densities, Breast Density category B. No suspicious masses or suspicious microcalcifications are seen. No skin thickening or abnormal axillary lymph nodes are seen. There has been no significant change from prior exams. IMPRESSION: BI-RADS Category 1, Negative mammogram Yearly screening mammography is recommended. Breast Density - Category B, scattered fibroglandular densities. A negative radiographic report should not delay biopsy if a dominant or clinically suspicious mass is present. Up to ten percent of cancers are not identified on mammography. A negative report may reinforce clinical impression. Adenosis and dense breasts may obscure an underlying neoplasm. False positive reports average 6 to 10%. Patient will receive a letter notifying them of these results.
== END 2024-10-01 00:57 ==
LOC: DI 00:37
PROVIDERS: PCP Nurse Practitioner Family; Visit Provider Nurse Practitioner Family
DX: Z12.31 Encounter for screening mammogram for malignant neoplasm of breast (principal); R92.323 Mammographic fibroglandular density, bilateral breasts
CPT/HCPCS: 77063; 77067

== ENCOUNTER 2025-03-07 01:14 | Outpatient (CLI) | payer MEDICARE, MEDICAID, SELFPAY ==
--- NOTE | 2025-03-07 | DI.US_ITS ---
Exam(s) US LOWER EXTREMITY VENOUS LT EXAM: US LOWER EXTREMITY VENOUS LT CLINICAL HISTORY: LT LOWER EXT SWELLING,H/O PHLEBITIS 08/04/23,60.0 TECHNIQUE: Grayscale, color, and doppler imaging of the deep venous system of the left lower extremity was performed. COMPARISON: US US BREAST RT COMPLETE from 09/29/2023 FINDINGS: There is no evidence of intraluminal thrombus and there is normal compression and augmentation demonstrated within the common femoral vein, femoral vein, and popliteal vein. In the ipsilateral calf the interrogated veins also exhibit normal compression/ augmentation properties. The ipsilateral saphenofemoral junction is patent. IMPRESSION: 1. No evidence of DVT in the left lower extremity. DATA REPOSITORY:
== END 2025-03-07 01:34 ==
PROVIDERS: PCP Nurse Practitioner Family; Visit Provider Student in an Organized Health Care Education/Training Program
DX: R60.0 Localized edema (principal)
CPT/HCPCS: 93971

== ENCOUNTER 2025-03-13 02:51 | Outpatient (CLI) | payer MEDICARE, MEDICAID, SELFPAY ==
[2025-03-13 13:54] LABS: ALT 26 U/L (14-59); AST 15 U/L (15-37); Albumin 3.8 g/dL (3.4-5.0); Alkaline Phosphatase 68 U/L (46-116); Anion Gap 11.0 mmol/L (3-11); BUN 30 mg/dL (7-18); Bilirubin, Total 0.5 mg/dL (0.2-1.0); CO2 27.0 mmol/L (21.0-32.0); Calcium 9.4 mg/dL (8.5-10.1); Chloride 103 mmol/L (98-107); Estimated GFR 77.75 (mL/min/1.73m2); Glucose 99 mg/dL (74-106); Magnesium 1.9 mg/dL (1.8-2.4); Potassium 3.3 mmol/L (3.5-5.1); Sodium 141 mmol/L (136-145); Total Protein 7.3 g/dL (6.4-8.2)
== END 2025-03-13 02:52 | disposition home or self-care (01) ==
LOC: LBO 02:52
PROVIDERS: PCP Nurse Practitioner Family; Visit Provider Student in an Organized Health Care Education/Training Program
DX: I10 Essential (primary) hypertension (principal)
CPT/HCPCS: 36415; 80053; 83735

== ENCOUNTER 2025-05-20 19:37 | Outpatient (CLI) | payer MEDICARE, MEDICAID, SELFPAY ==
--- NOTE | 2025-05-20 | DI.RAD_ITS ---
Exam(s) XR ANKLE LT COMPLETE EXAM: XR ANKLE LT COMPLETE CLINICAL HISTORY: M25.572 Pain ankle joints LT foot,medial malleolus wound,RO Osteomyelitis TECHNIQUE: 2D digital imaging was performed. Three views. COMPARISON: No exams were available for comparison FINDINGS: BONES: No acute fracture is present. No bony destructive lesion is seen. Enthesophyte posterior calcaneus. Small plantar spur. JOINTS:The ankle mortise is normally aligned. SOFT TISSUE: No marked soft tissue swelling. No foreign body. No visible gas collection. IMPRESSION: Soft tissue swelling. No bony abnormality. DATA REPOSITORY: RADIATION DOSE DELIVERED:
== END 2025-05-20 19:57 ==
LOC: DI 19:37
PROVIDERS: PCP Student in an Organized Health Care Education/Training Program; Visit Provider Student in an Organized Health Care Education/Training Program
DX: M25.572 Pain in left ankle and joints of left foot (principal)
CPT/HCPCS: 73610

== ENCOUNTER 2025-05-20 20:02 | Outpatient (CLI) | payer MEDICARE, MEDICAID, SELFPAY ==
[2025-05-20 11:59] LABS: HCT 39.7 % (36.0-46.0); HGB 13.1 g/dL (11.2-15.7); MCH 27.1 pg (27.0-33.0); MCHC 33.0 % (32.0-36.0); MCV 82 fL (80-95); MPV 10.8 fL (8.0-11.0); Platelet Count 213 10^3/uL (130-400); RBC 4.84 10^6/uL (3.93-5.22); RDW 12.7 % (11.7-14.6); RDW-SD 38.0 fL; WBC 6.93 10^3/uL (4.4-10.8)
[2025-05-20 12:01] LABS: ESR 7 mm/hr (0-30)
[2025-05-20 12:24] LABS: ALT 24 U/L (14-59); AST 16 U/L (15-37); Albumin 3.8 g/dL (3.4-5.0); Alkaline Phosphatase 75 U/L (46-116); Anion Gap 6.8 mmol/L (3-11); BUN 17 mg/dL (7-18); Bilirubin, Total 0.5 mg/dL (0.2-1.0); CO2 31.2 mmol/L (21.0-32.0); Calcium 9.9 mg/dL (8.5-10.1); Chloride 104 mmol/L (98-107); Estimated GFR 77.27 (mL/min/1.73m2); Glucose 109 mg/dL (74-106); Potassium 3.9 mmol/L (3.5-5.1); Sodium 142 mmol/L (136-145); Total Protein 7.6 g/dL (6.4-8.2)
[2025-05-20 12:25] LABS: C-Reactive Protein < 0.50 mg/dL (<or=0.5)
== END 2025-05-20 20:03 | disposition home or self-care (01) ==
LOC: LBO 20:02
PROVIDERS: PCP Student in an Organized Health Care Education/Training Program; Visit Provider Student in an Organized Health Care Education/Training Program
DX: L03.90 Cellulitis, unspecified (principal)
CPT/HCPCS: 36415; 80053; 85027; 85652; 86140

== ENCOUNTER → 2025-05-23 08:31 | Outpatient (BNVA) | payer MEDICARE, MEDICAID, SELFPAY | PROVIDERS: PCP Student in an Organized Health Care Education/Training Program; Referring Provider Student in an Organized Health Care Education/Training Program; Visit Provider Podiatrist | DX: Z51.89 Encounter for other specified aftercare (principal); L97.922 Non-pressure chronic ulcer of unspecified part of left lower leg with fat layer exposed; I83.023 Varicose veins of left lower extremity with ulcer of ankle; L03.116 Cellulitis of left lower limb | CPT/HCPCS: 11042; 29580; 29850 ==

== ENCOUNTER 2025-05-23 08:58 | Outpatient (REF) | payer MEDICARE, MEDICAID, SELFPAY | END 2025-05-23 08:59 | disposition home or self-care (01) | LOC: LBN 08:58 | PROVIDERS: PCP Student in an Organized Health Care Education/Training Program; Visit Provider Podiatrist | DX: S91.002A Unspecified open wound, left ankle, initial encounter (principal) | CPT/HCPCS: 87077; 87070; 87075; 87205 ==

== ENCOUNTER 2025-05-27 08:42 | Emergency (ER) | payer MEDICARE, MEDICAID, SELFPAY ==
[2025-05-27 08:44] VITALS: BP 170/76; PULSE 94; RESP 15; TEMP 36.8; O2SAT 99
[2025-05-27 08:48] VITALS: BP 170/76; PULSE 94; RESP 15; TEMP 36.8; O2SAT 99
--- NOTE | 2025-05-27 08:57 | W.ED.GENAD ---
Discharge Plan Disposition Patient Disposition: Home Discharge Details Clinical Impression: Ulcer of left lower extremity Primary Care Provider: Dereje Ugarte ED Provider: Leroy George Home Meds and New Rx's Prescriptions: Continued ketoconazole 2 % cream 1 applic topical DAILY Qty: 120 6RF Rx Instructions: Apply to toenails once daily Santyl 250 unit/gram ointment 1 applic topical DAILY Qty: 90 0RF Rx Instructions: 1.5 x 2.5 x 0.3 cm alendronate 70 mg tablet 70 mg PO DIRECTED Patient Comments: TAKE 1 TABLET BY MOUTH ONCE WEEKLY FIRST THING IN THE MORNING WITH WATER BEFORE EATING AND STAY UPRIGHT FOR 30 MINUTES hydrochlorothiazide 25 mg tablet 25 mg PO DAILY Patient Comments: TAKE ONE TABLET BY MOUTH EVERY DAY losartan 25 mg tablet 25 mg PO DAILY Patient Comments: TAKE ONE TABLET BY MOUTH EVERY DAY [place]-3 350 mg-235 mg- 90 mg-597 mg capsule,delayed release(DR/EC) 1 cap PO DAILY calcium carb,lactat-vitamin D3 200 mg-6.25 mcg (250 unit) tablet 1 tab PO DAILY rosuvastatin 20 mg tablet 10 mg PO DAILY Patient Comments: TAKE ONE TABLET BY MOUTH EVERY DAY Discharge Instructions Additional Instructions: You are seen in the emergency department for your ulcer. As we discussed if you develop fevers chills nausea or vomiting please return to the emergency department. Otherwise please follow-up with podiatry as previously scheduled in 2 days. Discharge Data Discharge Date/Time-TO BE ENTERED AT DEPARTURE: 05/27/25 09:42 HPI General Date/Time Provider Initiated Documentation: 05/27/25 08:56. HPI Narrative: MDM This is an overall very well-appearing normothermic and not tachycardic 75-year-old female with left lower extremity ulcer lacking signs of superinfection for which she will be discharged with an empiric trial of expectant outpatient management. No pain out of proportion to suggest necrotizing soft tissue infection. Based on shallow ulcer I am not concerned for osteomyelitis but I did not feel patient required an MRI. Left foot is warm and well-perfused so I am not concerned for critical limb ischemia so I do not feel patient requires a CT angiogram of her abdomen pelvis with runoffs. In the absence of trauma my suspicion for any acute osseous abnormalities with low so I did not feel that the patient required an x-ray. No rash to lower extremity to suggest zoster. No fluctuance to suggest abscess. No significant erythema nor warmth to suggest superimposed cellulitis show I felt that the benefits of observation off of antibiotics outweighed the risk. Patient I discussed that she should return to the emergency department if she developed any fevers nausea vomiting or streaking signs of infection. She had a Gram stain performed last week showing no white blood cells rare epithelial cells very rare gram-positive cocci and scant growth of Staphylococcus stimulans. Given recent treatment with doxycycline will defer further antibiotics. Patient has outpatient podiatry follow-up in 2 days. She understood her return indications of discharge with empiric trial of expectant outpatient management. I sent a message to Dr. Coulter advising her that the patient was in the ED. HPI This is a patient presenting with a wound and ulcer on the left leg. The patient has been experiencing a wound and ulcer on the left leg for approximately 4 weeks. Initially, she consulted Dr. Cristian Kincaid, who advised her not to remove the scab and prescribed doxycycline for 10 days, which the patient completed yesterday. Five days ago, she saw Dr. Coulter, who instructed her to keep the wound covered. The patient has been using a compression sock intermittently but removed it for this visit. She reports no fever, vomiting, or nausea. She is not diabetic and does not smoke cigarettes. The patient can move her ankle without difficulty, although it is sore. She recalls the onset of the wound as a small piece of skin protruding, which she pulled off. Exam General: Well-appearing in no acute distress speaking in complete sentences. Head: Normocephalic, atraumatic. Eye: Extraocular eye movements intact. No conjunctival injection. No scleral icterus. Ear, nose, mouth, throat: Grossly normal inspection. Normal voice, handling secretions normally. Neck: Trachea midline. Cardiovascular: Well-perfused distal extremities. Respiratory: Nonlabored respiration. Gastrointestinal: Nondistended abdomen. Musculoskeletal: On the left lower extremity just superior to the left medial malleolus there is a healing approximately 2 cm ulcer. It is shallow base. There is no purulence. There is no significant surrounding erythema. No drainage. No fluctuance. Intact PT and DP pulses. 5 out of 5 left lower extremity strength in dorsi and plantarflexion. Skin: Normal for age and race, grossly normal temperature and turgor. No acute rash. Neurologic: Alert and appropriate, no apparent acute deficits. Psychiatric: Mood and manner are appropriate. Grooming and personal hygiene are appropriate. Related Data Home Medications ?Medication ?Instructions ?Recorded ?Confirmed alendronate 70 mg tablet 70 mg PO DIRECTED 11/23/23 05/27/25 calcium carb and lactate 200 1 tab PO DAILY 11/23/23 05/27/25 mg-vitamin D3 6.25 mcg (250 unit) tablet hydrochlorothiazide 25 mg tablet 25 mg PO DAILY 11/23/23 05/27/25 losartan 25 mg tablet 25 mg PO DAILY 11/23/23 05/27/25 omega 3 350 mg-dha 235 mg-epa 90 1 cap PO DAILY 11/23/23 05/27/25 mg-fish oil 597 mg capsule,delay rel ([place]-3) ketoconazole 2 % topical cream 1 applic topical DAILY #120 grams 09/26/24 05/27/25 rosuvastatin 20 mg tablet 10 mg PO DAILY 05/22/25 05/27/25 collagenase clostridium histo. 250 1 applic topical DAILY #90 grams 05/23/25 05/27/25 unit/gram topical ointment (Santyl) Previous Rx's ?Medication ?Instructions ?Recorded ketoconazole 2 % topical cream 1 applic topical DAILY #120 grams 09/26/24 collagenase clostridium histo. 250 1 applic topical DAILY #90 grams 05/23/25 unit/gram topical ointment (Santyl) Allergies Allergy/AdvReac Type Severity Reaction Status Date / Time chlorpheniramine (From Allergy Intermediate Hives Verified 05/27/25 08:50 Coricidin HBP Cough and Cold) dextromethorphan (From Allergy Intermediate Hives Verified 05/27/25 08:50 Coricidin HBP Cough and Cold) sulfamethoxazole (From Allergy Intermediate Skin Rash Verified 05/27/25 08:50 Bactrim) trimethoprim (From Bactrim) Allergy Intermediate Skin Rash Verified 05/27/25 08:50 lisinopril AdvReac Cough Verified 05/27/25 08:50 General Stated Complaint: Cellulitis MARIELENA: 4 Course Vital Signs Vital signs: Vital Signs Temperature 36.8 C 05/27/25 08:44 Pulse 94 H 05/27/25 08:44 Respiratory Rate 15 05/27/25 08:44 Blood Pressure 170/76 H 05/27/25 08:44 Pulse Oximetry 99 05/27/25 08:44 Temperature 36.8 C 05/27/25 08:48 Temperature Source Oral 05/27/25 08:48 Pulse 94 H 05/27/25 08:48 Respiratory Rate 15 05/27/25 08:48 Blood Pressure 170/76 H 05/27/25 08:48 Blood Pressure Position Sitting 05/27/25 08:48 Pulse Oximetry 99 05/27/25 08:48 Oxygen Delivery Method Room Air 05/27/25 08:48 Oxygen Flow Rate 0 05/27/25 08:48 Pain Level 4 05/27/25 08:48 PFSH All Active Problems (Updated 05/27/25 @ 09:22 by Leroy George MD) Ulcer of left lower extremity (Acute) Nonhealing ulcer of left lower extremity (Acute) Chronic ulcer of left foot (Acute) Cellulitis (Acute) 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 (Acute) Hallux valgus (Acute) Bunion (Acute) Varicose veins of both lower extremities (Acute) Essential hypertension (Acute) Hypokalemia (Acute) Thrombosis of vein (Acute) LE Adjustment disorder with anxious mood (Acute) Senile osteoporosis (Acute) Prediabetes (Acute) Achilles tendon contracture, bilateral (Acute) Nail dystrophy (Acute) Corns and callosities (Acute) Hammertoe, bilateral (Acute) Bunion, right foot (Acute) Bunion, left foot (Acute) Primary open angle glaucoma (POAG) of left eye, mild stage (Chronic) Allergic rhinitis due to allergen (Acute) Glaucoma (Chronic) Second hand smoke exposure (Acute) Throat clearing (Acute) Cough (Acute) Impacted cerumen of right ear (Acute) Post-nasal drip (Acute) Medical History Left ankle pain Hip joint pain Chronic rhinitis Chronic cough Social History Smoking/Tobacco Use Status: Never Smoking risk assessment performed?: Yes Alcohol Intake: never Drug use: Never Substance use type: does not use Housing: house Do you feel safe at home: Yes Do you feel safe in your relationship?: Yes
== END 2025-05-27 09:42 | disposition home or self-care (01) ==
PROVIDERS: Emergency Provider Emergency Medicine; PCP Student in an Organized Health Care Education/Training Program
DX: L97.529 Non-pressure chronic ulcer of other part of left foot with unspecified severity (principal)
CPT/HCPCS: 99281; 99282

== ENCOUNTER → 2025-05-29 08:31 | Outpatient (BNVA) | payer MEDICARE, MEDICAID, SELFPAY | PROVIDERS: PCP Student in an Organized Health Care Education/Training Program; Referring Provider Student in an Organized Health Care Education/Training Program; Visit Provider Podiatrist | DX: Z51.89 Encounter for other specified aftercare (principal); I83.023 Varicose veins of left lower extremity with ulcer of ankle; L97.922 Non-pressure chronic ulcer of unspecified part of left lower leg with fat layer exposed; L03.116 Cellulitis of left lower limb | CPT/HCPCS: 99215; 29580; 29850 ==

== ENCOUNTER 2025-05-31 15:25 | Outpatient (REF) | payer MEDICARE, MEDICAID, SELFPAY ==
[2025-05-31 16:54] LABS: Abs Immature Grans 0.01 10^3/uL (0.0-0.06); HCT 37.8 % (36.0-46.0); HGB 12.4 g/dL (11.2-15.7); Immature Grans % 0.1 %; MCH 27.0 pg (27.0-33.0); MCHC 32.8 % (32.0-36.0); MCV 82 fL (80-95); MPV 11.2 fL (8.0-11.0); Platelet Count 211 10^3/uL (130-400); RBC 4.59 10^6/uL (3.93-5.22); RDW 12.8 % (11.7-14.6); RDW-SD 38.6 fL; WBC 6.93 10^3/uL (4.4-10.8)
[2025-05-31 17:18] LABS: ALT 27 U/L (14-59); AST 19 U/L (15-37); Albumin 3.5 g/dL (3.4-5.0); Alkaline Phosphatase 74 U/L (46-116); Anion Gap 11.3 mmol/L (3-11); BUN 26 mg/dL (7-18); Bilirubin, Total 0.4 mg/dL (0.2-1.0); CO2 25.7 mmol/L (21.0-32.0); Calcium 8.6 mg/dL (8.5-10.1); Chloride 103 mmol/L (98-107); Estimated GFR 90.70 (mL/min/1.73m2); Glucose 110 mg/dL (74-106); Potassium 3.4 mmol/L (3.5-5.1); Sodium 140 mmol/L (136-145); Total Protein 7.4 g/dL (6.4-8.2)
== END 2025-05-31 15:26 | disposition home or self-care (01) ==
LOC: NCHCN 15:25
PROVIDERS: PCP Student in an Organized Health Care Education/Training Program
DX: Z01.818 Encounter for other preprocedural examination (principal)
CPT/HCPCS: 80053; 85025

== ENCOUNTER 2025-06-03 12:20 | Day surgery (SDC) | payer MEDICARE, MEDICAID, SELFPAY ==
[2025-06-03 12:38] VITALS: BP 169/80; PULSE 89; RESP 16; TEMP 36.1; O2SAT 98
[2025-06-03] MEDS: Lactated Ringers 1,000 ML 80 ML IV (12:49)
--- NOTE | 2025-06-03 13:39 | W.ANESPRE ---
General Info Date of Service Date Performed: 06/03/25 Height: 5 ft 1 in Weight: 84.7 kg Body Mass Index (BMI): 35.2 Surgical Procedure: Operation Date: 06/03/25 13:10 Proposed Procedure Side Surgeon p Excisional Wound Debridement- Leg Left Rohini Granados DPM Meds Allergies and Home Medications Allergies Allergy/AdvReac Type Severity Reaction Status Date / Time chlorpheniramine (From Allergy Intermediate Hives Verified 06/03/25 12:42 Coricidin HBP Cough and Cold) dextromethorphan (From Allergy Intermediate Hives Verified 06/03/25 12:42 Coricidin HBP Cough and Cold) sulfamethoxazole (From Allergy Intermediate Skin Rash Verified 06/03/25 12:42 Bactrim) trimethoprim (From Bactrim) Allergy Intermediate Skin Rash Verified 06/03/25 12:42 lisinopril AdvReac Cough Verified 06/03/25 12:42 Home Medication ?Medication ?Instructions ?Recorded alendronate 70 mg tablet 70 mg PO DIRECTED 11/23/23 calcium carb and lactate 200 1 tab PO DAILY 11/23/23 mg-vitamin D3 6.25 mcg (250 unit) tablet hydrochlorothiazide 25 mg tablet 25 mg PO DAILY 11/23/23 losartan 25 mg tablet 25 mg PO DAILY 11/23/23 omega 3 350 mg-dha 235 mg-epa 90 1 cap PO DAILY 11/23/23 mg-fish oil 597 mg capsule,delay rel ([place]-3) ketoconazole 2 % topical cream 1 applic topical DAILY #120 grams 09/26/24 rosuvastatin 20 mg tablet 10 mg PO DAILY 05/22/25 collagenase clostridium histo. 250 1 applic topical DAILY #90 grams 05/23/25 unit/gram topical ointment (Santyl) amoxicillin 500 mg-potassium 1 tab PO BID 7 days #14 tabs 05/29/25 clavulanate 125 mg tablet (Augmentin) Current Visit Medications: Current Medications Generic Name Dose Route Start Last Admin Trade Name Freq PRN Reason Stop Dose Admin Ringer's Solution 1,000 mls @ 80 mls/hr 06/03/25 06:00 06/03/25 12:49 IV 06/30/25 23:59 80 mls/hr INFUSION ALESHIA Administration Cefazolin Sodium/Dextrose 2 gm in 50 mls @ 100 mls/hr 06/03/25 06:00 Ancef Duplex IVPB 06/30/25 23:59 PREOP ALESHIA IV Miscellaneous Supplies 1 each 06/03/25 06:00 Iv Access IV 06/30/25 23:59 DIRECTED ALESHIA Sodium Chloride 0 ml 06/03/25 06:00 Normal Saline Flush 10 Ml Syr IV 06/30/25 23:59 PRN PRN Sodium Chloride 0 ml 06/03/25 06:00 Normal Saline 10 Ml Vial IJ 06/30/25 23:59 DIRECTED PRN Sterile Water 0 ml 06/03/25 06:00 Water,Injection,Sterile 10 Ml Vial IJ 06/30/25 23:59 DIRECTED PRN PFSH Active Problems Active Problems: Problem Status Onset Code Ulcer of left lower extremity Acute L97.929 Nonhealing ulcer of left lower extremity Acute L97.929 Chronic ulcer of left foot Acute L97.529 Cellulitis Acute L03.90 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 Acute I83.029, L97.922 Hallux valgus Acute M20.10 Bunion Acute M21.619 Varicose veins of both lower extremities Acute I83.93 Essential hypertension Acute I10 Hypokalemia Acute E87.6 Thrombosis of vein Acute I82.90 Adjustment disorder with anxious mood Acute F43.22 Senile osteoporosis Acute M81.0 Prediabetes Acute R73.03 Achilles tendon contracture, bilateral Acute M67.01, M67.02 Nail dystrophy Acute L60.3 Corns and callosities Acute L84 Hammertoe, bilateral Acute M20.41, M20.42 Bunion, right foot Acute M21.611 Bunion, left foot Acute M21.612 Primary open angle glaucoma (POAG) of left eye, mild stage Chronic H40.1121 Nuclear age-related cataract, left eye Resolved H25.12 Allergic rhinitis due to allergen Acute J30.9 Glaucoma Chronic H40.9 Second hand smoke exposure Acute Z77.22 Throat clearing Acute R68.89 Cough Acute R05 Impacted cerumen of right ear Acute H61.21 Post-nasal drip Acute R09.82 Medical History Medical History Left ankle pain Hip joint pain Chronic rhinitis Chronic cough Tobacco Smoking/Tobacco Use Status: Never Passive smoking exposure: No Alcohol Alcohol Intake: never Substance Use Substance use: Never Substance use type: does not use Vital Signs and Lab Results Vital Signs Most Recent Vital Signs in EMR: Most Recent Vital Signs Temp Pulse Resp BP Pulse Ox 36.1 C L 89 16 169/80 H 98 06/03/25 12:38 06/03/25 12:38 06/03/25 12:38 06/03/25 12:38 06/03/25 12:38 Lab Results Complete Blood Count: WBC, (4.4-10.8) 6.93 10^3/uL 05/31/25, 11:00 RBC, (3.93-5.22) 4.59 10^6/uL 05/31/25, 11:00 Hgb, (11.2-15.7) 12.4 g/dL 05/31/25, 11:00 Hct, (36.0-46.0) 37.8 % 05/31/25, 11:00 Plt Count, (130-400) 211 10^3/uL 05/31/25, 11:00 Complete Metabolic Panel: Sodium, (136-145) 140 mmol/L 05/31/25, 11:00 Potassium, (3.5-5.1) 3.4 mmol/L L 05/31/25, 11:00 Chloride, (98-107) 103 mmol/L 05/31/25, 11:00 Carbon Dioxide, (21.0-32.0) 25.7 mmol/L 05/31/25, 11:00 BUN, (7-18) 26 mg/dL H 05/31/25, 11:00 Creatinine, (0.55-1.02) 0.7 mg/dL 05/31/25, 11:00 Est GFR (CKD-EPI 2020), (mL/min/1.73m2) 90.70 05/31/25, 11:00 Calcium, (8.5-10.1) 8.6 mg/dL 05/31/25, 11:00 Albumin, (3.4-5.0) 3.5 g/dL 05/31/25, 11:00 Glucose, (74-106) 110 mg/dL H 05/31/25, 11:00 C-Reactive Protein, (<or=0.5) < 0.50 mg/dL 05/20/25, 11:40 Liver Function Panel: ALT, (14-59) 27 U/L 05/31/25, 11:00 AST, (15-37) 19 U/L 05/31/25, 11:00 Anesthesia Assessment and Plan Anesthesia History Personal History: No History of Anesthesia Complications Family History: No Family History of Anesthesia Complications Exercise Tolerance Exercise Tolerance: Metabolic Equivalents>4 Pertinent Negatives Pertinent Negatives: No Symptoms of GERD Cardiac & Pulmonary Exam Cardiac Exam: Heart Murmur Present (benign) Pulmonary Exam: Clear Bilateral Breath Sounds Implantable Cardiac Device Does patient have a Pacemaker or an ICD?: No Airway Exam Known Difficult Airway: No Mallampati Class: 2 Mouth Opening: Normal (> 3cm) Thyromental Distance: Greater than 3 cm Neck Range of Motion: Full ROM Neck Circumference: Normal Teeth Condition: Normal Dentition ASA Classification ASA Score: ASA 2 Emergency Case?: No NPO Status NPO Status: NPO Clears >2 hours, Solids >8 hours Anesthesia Plan Resuscitation Status: Full Code Anesthesia Technique: General Anesthesia Airway Planned: Natural Airway Monitors Used: Standard Monitors
[2025-06-03 14:21] VITALS: BMI 35.2
[2025-06-03] MEDS: ceFAZolin 2 GM/50 ML BAG IVPB (14:52)
[2025-06-03] MEDS: Lidocaine 1% Pres-Free 30 ML VIAL (15:05)
--- NOTE | 2025-06-03 15:20 | PDOC.DSDIS_ITS ---
Date of service: 06/03/25 Discharge Plan Disposition Patient Disposition: Home Condition: Stable Discharge Details Attending Provider: Rohini Granados Primary Care Provider: Dereje Ugarte Home Meds and New Rx's Prescriptions: No Action amoxicillin-pot clavulanate [Augmentin] 500-125 mg tablet 1 tab PO BID 7 Days Qty: 14 0RF ketoconazole 2 % cream 1 applic topical DAILY Qty: 120 6RF Rx Instructions: Apply to toenails once daily Santyl 250 unit/gram ointment 1 applic topical DAILY Qty: 90 0RF Rx Instructions: 1.5 x 2.5 x 0.3 cm alendronate 70 mg tablet 70 mg PO DIRECTED Patient Comments: TAKE 1 TABLET BY MOUTH ONCE WEEKLY FIRST THING IN THE MORNING WITH WATER BEFORE EATING AND STAY UPRIGHT FOR 30 MINUTES hydrochlorothiazide 25 mg tablet 25 mg PO DAILY Patient Comments: TAKE ONE TABLET BY MOUTH EVERY DAY losartan 25 mg tablet 25 mg PO DAILY Patient Comments: TAKE ONE TABLET BY MOUTH EVERY DAY [place]-3 350 mg-235 mg- 90 mg-597 mg capsule,delayed release(DR/EC) 1 cap PO DAILY calcium carb,lactat-vitamin D3 200 mg-6.25 mcg (250 unit) tablet 1 tab PO DAILY rosuvastatin 20 mg tablet 10 mg PO DAILY Patient Comments: TAKE ONE TABLET BY MOUTH EVERY DAY Discharge Instructions Additional Instructions: Patient to keep the dressings clean, dry and intact. Keep the left lower extremity elevated at all times. You may apply weight on the left foot. Do not let the dressings get wet. Patient to follow-up in office on Stand Alone Forms: Anesthesia Discharge Inst., Podiatry Instructions-[facility], Matthew Guardado ([facility]) Referrals: Rohini Granados DPM [[facility] STAFF PHYSICIAN, Podiatry] Activity:: Elevate Remove Dressings/Wound Care:: Do Not Remove Shower/Bathe:: Cover Diet:: Normal Diet Discharge Orders Discharge Orders: Discharge Order (Routine); Ordered 06/03/25 Ordered By: Rohini Granados
--- NOTE | 2025-06-03 15:21 | ROE_ITS ---
Operative Note Operative Note PRE-OP DIAGNOSIS: Nonhealing ulcer, left leg POST-OP DIAGNOSIS: same PROCEDURE: Excisional wound debridement using Versajet, removal of all necrotic, nonviable tissue including subcutaneous tissue and fascia, left ankle Preparation of wound bed for graft application, left ankle. Application of wound graft, left ankle SURGEON: Rohini Granados ANESTHESIA TYPE: Local By Surgeon (10 mL lidocaine plain 1% preop) Refer to Anesthesia Record ESTIMATED BLOOD LOSS: 1 PATHOLOGY: none sent COMPLICATIONS: None Patient was transported to: same day Patient's condition: stable Implants: EpiFix 2 x 4 cm Indications: Nonhealing ulcer to the left leg. Patient has had conservative care. Excisional wound debridement is medically necessary to help debride all the necrotic, nonviable tissue. Patient not tolerating wound debridement in office due to pain. OR procedure is medically necessary to help with the pain. Findings: 100% necrotic base predebridement noted, ulcer predebridement measures 2.0 x 1.3 cm. Postdebridement there is fascia exposed total length of the wound is 2.1 x 1.3 cm. Procedure Description: Patient was brought to the operating room placed in supine position with the anesthesia team. After induction of anesthesia the left lower extremity was scrubbed prepped and draped in the usual aseptic manner. A local block was performed using 10 mL of 1% lidocaine plain preoperatively. Next, the wound was evaluated and noted to be 100% necrotic. Versajet was used to excisionally debride all necrotic, nonviable tissue including subcutaneous tissue. This time the fascia was noted to be exposed. I used a sterile #15 blade to crosshatch the fascia to allow for bleeding and granulation. Healthy bleeding was noted. Hemostasis was achieved with pressure. EpiFix wound graft measuring 2.0 x 4.0 cm was applied to the wound. Adaptic was then applied and secured with Steri- Strips. A 4 x 4 bolster dressing was then applied. Dressings were then applied with 4 x 4, Kerlix and Coban for compression. Patient tolerated the procedure and anesthesia well with vital signs stable and vascular status intact to the left foot. Patient was transferred to same-day for further monitoring. Patient to be discharged home once stable. Date of Procedure: 06/03/25
[2025-06-03 15:24] VITALS: BP 110/49; PULSE 78; RESP 17; TEMP 36.4; O2SAT 95
--- NOTE | 2025-06-03 15:30 | W.ANESPOSTOP ---
Postoperative Evaluation Date, Time and Location Date Performed: 06/03/25 Time Performed: 15:30 Patient Location: Day Surgery Unit Vital Signs Most Recent Imported Vital Signs: Most Recent Vital Signs Temp Pulse Resp BP Pulse Ox 36.1 C L 89 16 169/80 H 98 06/03/25 12:38 06/03/25 12:38 06/03/25 12:38 06/03/25 12:38 06/03/25 12:38 Pain Score Most Recent Pain Score: Most Recent Pain Score Pain Level 0 06/03/25 12:38 Assessment Mental Status: Awake (Alert & Oriented to Patient Baseline) Airway and Respiratory Function: Patent airway with normal (patient baseline) respiratory exam Cardiovascular Function: Hemodynamically Stable Hydration Status: Adequately Hydrated Nausea & Vomiting: No Nausea or Vomiting Pain: Pt. Denies Any Pain Peripheral Nerve Block: Patient did not receive a nerve block
[2025-06-03 16:00] VITALS: BP 128/66; PULSE 71; RESP 16; TEMP 36.4; O2SAT 98
--- NOTE | 2025-06-03 16:07 | W.PREOPHP ---
Assessment and Plan Assessment and plan (1) Ulcer of left lower extremity: Status: Acute (2) Nonhealing ulcer of left lower extremity: Status: Acute (3) Chronic ulcer of left foot: Status: Acute (4) 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 Assessment and plan: Patient seen for preop history and physical. Heart lungs clear. No changes to medical history. Patient cleared for surgery. No contraindications noted. History of Present Illness Narrative: Patient seen for preop clearance. She did obtain clearance from her primary however heart and lung exam missing. Denies any new complaints. Denies nausea vomiting chills fever diarrhea no calf pain chest pain shortness of breath PFSH All Active Problems Ulcer of left lower extremity (Acute) Nonhealing ulcer of left lower extremity (Acute) Chronic ulcer of left foot (Acute) Cellulitis (Acute) 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 (Acute) Hallux valgus (Acute) Bunion (Acute) Varicose veins of both lower extremities (Acute) Prediabetes (Acute) Essential hypertension (Acute) Adjustment disorder with anxious mood (Acute) Hypokalemia (Acute) Thrombosis of vein (Acute) LE Senile osteoporosis (Acute) Achilles tendon contracture, bilateral (Acute) Nail dystrophy (Acute) Corns and callosities (Acute) Hammertoe, bilateral (Acute) Bunion, right foot (Acute) Bunion, left foot (Acute) Primary open angle glaucoma (POAG) of left eye, mild stage (Chronic) Allergic rhinitis due to allergen (Acute) Glaucoma (Chronic) Second hand smoke exposure (Acute) Throat clearing (Acute) Cough (Acute) Impacted cerumen of right ear (Acute) Post-nasal drip (Acute) Medical History Left ankle pain Hip joint pain Chronic rhinitis Chronic cough Social History Smoking/Tobacco Use Status: Never Smoking risk assessment performed?: Yes Alcohol Intake: never Drug use: Never Substance use type: does not use Housing: house Do you feel safe at home: Yes Do you feel safe in your relationship?: Yes Meds Allergies and Home Medications Allergies Allergy/AdvReac Type Severity Reaction Status Date / Time chlorpheniramine (From Allergy Intermediate Hives Verified 06/03/25 12:42 Coricidin HBP Cough and Cold) dextromethorphan (From Allergy Intermediate Hives Verified 06/03/25 12:42 Coricidin HBP Cough and Cold) sulfamethoxazole (From Allergy Intermediate Skin Rash Verified 06/03/25 12:42 Bactrim) trimethoprim (From Bactrim) Allergy Intermediate Skin Rash Verified 06/03/25 12:42 lisinopril AdvReac Cough Verified 06/03/25 12:42 Home Medications ?Medication ?Instructions ?Recorded ?Confirmed ?Type alendronate 70 mg tablet 70 mg PO DIRECTED 11/23/23 06/03/25 History calcium carb and lactate 200 1 tab PO DAILY 11/23/23 06/03/25 History mg-vitamin D3 6.25 mcg (250 unit) tablet hydrochlorothiazide 25 mg tablet 25 mg PO DAILY 11/23/23 06/03/25 History losartan 25 mg tablet 25 mg PO DAILY 11/23/23 06/03/25 History omega 3 350 mg-dha 235 mg-epa 90 1 cap PO DAILY 11/23/23 06/03/25 History mg-fish oil 597 mg capsule,delay rel ([place]-3) ketoconazole 2 % topical cream 1 applic topical DAILY #120 grams 09/26/24 06/03/25 Rx rosuvastatin 20 mg tablet 10 mg PO DAILY 05/22/25 06/03/25 History collagenase clostridium histo. 250 1 applic topical DAILY #90 grams 05/23/25 06/03/25 Rx unit/gram topical ointment (Santyl) amoxicillin 500 mg-potassium 1 tab PO BID 7 days #14 tabs 05/29/25 06/03/25 Rx clavulanate 125 mg tablet (Augmentin) oxycodone-acetaminophen 5 mg-325 1 tab PO Q8H 3 days #9 tabs 06/03/25 06/03/25 Rx mg tablet (Percocet) Exam Resp Effort & Inspection: normal respiratory effort and able to speak in complete sentences Auscultation: clear to auscultation bilaterally Cardio Rhythm: regular rhythm Heart Sounds: S1 normal and S2 normal Results Last Vital Signs Temp 97.5 F L 06/03/25 16:00 Pulse 71 06/03/25 16:00 Resp 16 06/03/25 16:00 BP 128/66 06/03/25 16:00 Pulse Ox 98 06/03/25 16:00
== END 2025-06-03 16:13 | disposition home or self-care (01) ==
PROVIDERS: PCP Student in an Organized Health Care Education/Training Program; Visit Provider Podiatrist
PROC: (CPT 15271; principal; 2025-06-03 13:00)
DX: I83.023 Varicose veins of left lower extremity with ulcer of ankle (principal); L97.322 Non-pressure chronic ulcer of left ankle with fat layer exposed; I10 Essential (primary) hypertension; R73.03 Prediabetes
CPT/HCPCS: 15271; 15002; Q4186; J0131; J0690; J1100; J1885; J2003; J2405; J2704

== ENCOUNTER → 2025-06-06 09:42 | Outpatient (BNVA) | payer MEDICARE, MEDICAID, SELFPAY | PROVIDERS: PCP Student in an Organized Health Care Education/Training Program; Referring Provider Student in an Organized Health Care Education/Training Program; Visit Provider Podiatrist | DX: Z98.890 Other specified postprocedural states (principal); Z51.89 Encounter for other specified aftercare; I83.029 Varicose veins of left lower extremity with ulcer of unspecified site; L97.922 Non-pressure chronic ulcer of unspecified part of left lower leg with fat layer exposed; L03.116 Cellulitis of left lower limb; R73.03 Prediabetes | CPT/HCPCS: 99024 ==

== ENCOUNTER → 2025-06-10 08:05 | Outpatient (BNVA) | payer MEDICARE, MEDICAID, SELFPAY | PROVIDERS: PCP Student in an Organized Health Care Education/Training Program; Referring Provider Student in an Organized Health Care Education/Training Program; Visit Provider Podiatrist | DX: Z98.890 Other specified postprocedural states (principal); Z51.89 Encounter for other specified aftercare; L97.522 Non-pressure chronic ulcer of other part of left foot with fat layer exposed; I83.025 Varicose veins of left lower extremity with ulcer other part of foot; R73.03 Prediabetes | CPT/HCPCS: 99214 ==

== ENCOUNTER 2025-06-17 09:15 | Day surgery (SDC) | payer MEDICARE, MEDICAID, SELFPAY ==
[2025-06-17] VITALS (15 sets, daily range): BP systolic 84–153; BP diastolic 39–69; PULSE 79–88; RESP 14–19; TEMP 35.9–36.5; O2SAT 93–98; BMI 34.2
--- NOTE | 2025-06-17 07:01 | W.ANESPRE ---
General Info Height: 5 ft 1 in Weight: 84.7 kg Body Mass Index (BMI): 35.2 Surgical Procedure: Operation Date: 06/17/25 11:40 Proposed Procedure Side Surgeon p Debridement of Ankle Left Rohini Granados DPM Meds Allergies and Home Medications Allergies Allergy/AdvReac Type Severity Reaction Status Date / Time chlorpheniramine (From Allergy Intermediate Hives Verified 06/14/25 12:21 Coricidin HBP Cough and Cold) dextromethorphan (From Allergy Intermediate Hives Verified 06/14/25 12:21 Coricidin HBP Cough and Cold) sulfamethoxazole (From Allergy Intermediate Skin Rash Verified 06/14/25 12:21 Bactrim) trimethoprim (From Bactrim) Allergy Intermediate Skin Rash Verified 06/14/25 12:21 lisinopril AdvReac Cough Verified 06/14/25 12:21 Home Medication ?Medication ?Instructions ?Recorded alendronate 70 mg tablet 70 mg PO DIRECTED 11/23/23 calcium carb and lactate 200 1 tab PO DAILY 11/23/23 mg-vitamin D3 6.25 mcg (250 unit) tablet hydrochlorothiazide 25 mg tablet 25 mg PO DAILY 11/23/23 losartan 25 mg tablet 25 mg PO DAILY 11/23/23 omega 3 350 mg-dha 235 mg-epa 90 1 cap PO DAILY 11/23/23 mg-fish oil 597 mg capsule,delay rel ([place]-3) ketoconazole 2 % topical cream 1 applic topical DAILY #120 grams 09/26/24 rosuvastatin 20 mg tablet 10 mg PO DAILY 05/22/25 collagenase clostridium histo. 250 1 applic topical DAILY #90 grams 05/23/25 unit/gram topical ointment (Santyl) gabapentin 300 mg capsule 300 mg PO QHS #14 caps 06/06/25 gentamicin 0.1 % topical cream 1 applic topical QID #30 grams 06/06/25 Current Visit Medications: Current Medications Generic Name Dose Route Start Last Admin Trade Name Freq PRN Reason Stop Dose Admin Ringer's Solution 1,000 mls @ 80 mls/hr 06/17/25 06:00 IV 07/14/25 23:59 INFUSION ALESHIA Cefazolin Sodium/Dextrose 2 gm in 50 mls @ 100 mls/hr 06/17/25 06:00 Ancef Duplex IVPB 07/14/25 23:59 PREOP ALESHIA IV Miscellaneous Supplies 1 each 06/17/25 06:00 Iv Access IV 07/14/25 23:59 DIRECTED ALESHIA Sodium Chloride 0 ml 06/17/25 06:00 Normal Saline Flush 10 Ml Syr IV 07/14/25 23:59 PRN PRN Sodium Chloride 0 ml 06/17/25 06:00 Normal Saline 10 Ml Vial IJ 07/14/25 23:59 DIRECTED PRN Sterile Water 0 ml 06/17/25 06:00 Water,Injection,Sterile 10 Ml Vial IJ 07/14/25 23:59 DIRECTED PRN PFSH Active Problems Active Problems: Problem Status Onset Code Ulcer of left lower extremity Acute L97.929 Nonhealing ulcer of left lower extremity Acute L97.929 Chronic ulcer of left foot Acute L97.529 Cellulitis Acute L03.90 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 Acute I83.029, L97.922 Hallux valgus Acute M20.10 Bunion Acute M21.619 Varicose veins of both lower extremities Acute I83.93 Essential hypertension Acute I10 Hypokalemia Acute E87.6 Thrombosis of vein Acute I82.90 Adjustment disorder with anxious mood Acute F43.22 Senile osteoporosis Acute M81.0 Prediabetes Acute R73.03 Achilles tendon contracture, bilateral Acute M67.01, M67.02 Nail dystrophy Acute L60.3 Corns and callosities Acute L84 Hammertoe, bilateral Acute M20.41, M20.42 Bunion, right foot Acute M21.611 Bunion, left foot Acute M21.612 Primary open angle glaucoma (POAG) of left eye, mild stage Chronic H40.1121 Nuclear age-related cataract, left eye Resolved H25.12 Allergic rhinitis due to allergen Acute J30.9 Glaucoma Chronic H40.9 Second hand smoke exposure Acute Z77.22 Throat clearing Acute R68.89 Cough Acute R05 Impacted cerumen of right ear Acute H61.21 Post-nasal drip Acute R09.82 Medical History Medical History Left ankle pain Hip joint pain Chronic rhinitis Chronic cough Tobacco Smoking/Tobacco Use Status: Never Passive smoking exposure: No Alcohol Alcohol Intake: never Substance Use Substance use: Never Substance use type: does not use Vital Signs and Lab Results Lab Results Complete Blood Count: WBC, (4.4-10.8) 6.93 10^3/uL 05/31/25, 11:00 RBC, (3.93-5.22) 4.59 10^6/uL 05/31/25, 11:00 Hgb, (11.2-15.7) 12.4 g/dL 05/31/25, 11:00 Hct, (36.0-46.0) 37.8 % 05/31/25, 11:00 Plt Count, (130-400) 211 10^3/uL 05/31/25, 11:00 Complete Metabolic Panel: Sodium, (136-145) 140 mmol/L 05/31/25, 11:00 Potassium, (3.5-5.1) 3.4 mmol/L L 05/31/25, 11:00 Chloride, (98-107) 103 mmol/L 05/31/25, 11:00 Carbon Dioxide, (21.0-32.0) 25.7 mmol/L 05/31/25, 11:00 BUN, (7-18) 26 mg/dL H 05/31/25, 11:00 Creatinine, (0.55-1.02) 0.7 mg/dL 05/31/25, 11:00 Est GFR (CKD-EPI 2020), (mL/min/1.73m2) 90.70 05/31/25, 11:00 Calcium, (8.5-10.1) 8.6 mg/dL 05/31/25, 11:00 Albumin, (3.4-5.0) 3.5 g/dL 05/31/25, 11:00 Glucose, (74-106) 110 mg/dL H 05/31/25, 11:00 C-Reactive Protein, (<or=0.5) < 0.50 mg/dL 05/20/25, 11:40 Liver Function Panel: ALT, (14-59) 27 U/L 05/31/25, 11:00 AST, (15-37) 19 U/L 05/31/25, 11:00 Anesthesia Assessment and Plan Anesthesia History Personal History: No History of Anesthesia Complications Family History: No Family History of Anesthesia Complications Exercise Tolerance Exercise Tolerance: Metabolic Equivalents>4 Implantable Cardiac Device Does patient have a Pacemaker or an ICD?: No Airway Exam Known Difficult Airway: No Mallampati Class: 2 Mouth Opening: Normal (> 3cm) Thyromental Distance: Greater than 3 cm Neck Range of Motion: Full ROM Neck Circumference: Normal Teeth Condition: Normal Dentition Anesthesia Plan Resuscitation Status: Full Code Anesthesia Technique: General Anesthesia Preoperative Comments:: 75 yo for debridement of off. Sig PMHx: HTN, PreDM, anxiety, glaucoma, PND. Previous Anes: - debridement, prop, natural airway, no issues.
[2025-06-17] MEDS: Lactated Ringers 1,000 ML 80 ML IV (09:52)
--- NOTE | 2025-06-17 10:13 | W.ANESPRE ---
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: (3) Cellulitis: (4) Chronic ulcer of left foot: Meds Allergies and Home Medications Allergies Allergy/AdvReac Type Severity Reaction Status Date / Time chlorpheniramine (From Allergy Intermediate Hives Verified 06/17/25 09:43 Coricidin HBP Cough and Cold) dextromethorphan (From Allergy Intermediate Hives Verified 06/17/25 09:43 Coricidin HBP Cough and Cold) sulfamethoxazole (From Allergy Intermediate Skin Rash Verified 06/17/25 09:43 Bactrim) trimethoprim (From Bactrim) Allergy Intermediate Skin Rash Verified 06/17/25 09:43 lisinopril AdvReac Cough Verified 06/17/25 09:43 Home Medication ?Medication ?Instructions ?Recorded alendronate 70 mg tablet 70 mg PO DIRECTED 11/23/23 calcium carb and lactate 200 1 tab PO DAILY 11/23/23 mg-vitamin D3 6.25 mcg (250 unit) tablet hydrochlorothiazide 25 mg tablet 25 mg PO DAILY 11/23/23 losartan 25 mg tablet 25 mg PO DAILY 11/23/23 omega 3 350 mg-dha 235 mg-epa 90 1 cap PO DAILY 11/23/23 mg-fish oil 597 mg capsule,delay rel ([place]-3) ketoconazole 2 % topical cream 1 applic topical DAILY #120 grams 09/26/24 rosuvastatin 20 mg tablet 10 mg PO DAILY 05/22/25 collagenase clostridium histo. 250 1 applic topical DAILY #90 grams 05/23/25 unit/gram topical ointment (Santyl) gabapentin 300 mg capsule 300 mg PO QHS #14 caps 06/06/25 gentamicin 0.1 % topical cream 1 applic topical QID #30 grams 06/06/25 Current Visit Medications: Current Medications Generic Name Dose Route Start Last Admin Trade Name Jose Miguelq PRN Reason Stop Dose Admin Ringer's Solution 1,000 mls @ 80 mls/hr 06/17/25 06:00 06/17/25 09:52 IV 07/14/25 23:59 80 mls/hr INFUSION ALESHIA Administration Cefazolin Sodium/Dextrose 2 gm in 50 mls @ 100 mls/hr 06/17/25 06:00 Ancef Duplex IVPB 07/14/25 23:59 PREOP ALESHIA IV Miscellaneous Supplies 1 each 06/17/25 06:00 Iv Access IV 07/14/25 23:59 DIRECTED ALESHIA Sodium Chloride 0 ml 06/17/25 06:00 Normal Saline Flush 10 Ml Syr IV 07/14/25 23:59 PRN PRN Sodium Chloride 0 ml 06/17/25 06:00 Normal Saline 10 Ml Vial IJ 07/14/25 23:59 DIRECTED PRN Sterile Water 0 ml 06/17/25 06:00 Water,Injection,Sterile 10 Ml Vial IJ 07/14/25 23:59 DIRECTED PRN PFSH Active Problems Active Problems: Problem Status Onset Code Ulcer of left lower extremity Acute L97.929 Nonhealing ulcer of left lower extremity Acute L97.929 Chronic ulcer of left foot Acute L97.529 Cellulitis Acute L03.90 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 Acute I83.029, L97.922 Hallux valgus Acute M20.10 Bunion Acute M21.619 Varicose veins of both lower extremities Acute I83.93 Essential hypertension Acute I10 Hypokalemia Acute E87.6 Thrombosis of vein Acute I82.90 Adjustment disorder with anxious mood Acute F43.22 Senile osteoporosis Acute M81.0 Prediabetes Acute R73.03 Achilles tendon contracture, bilateral Acute M67.01, M67.02 Nail dystrophy Acute L60.3 Corns and callosities Acute L84 Hammertoe, bilateral Acute M20.41, M20.42 Bunion, right foot Acute M21.611 Bunion, left foot Acute M21.612 Primary open angle glaucoma (POAG) of left eye, mild stage Chronic H40.1121 Nuclear age-related cataract, left eye Resolved H25.12 Allergic rhinitis due to allergen Acute J30.9 Glaucoma Chronic H40.9 Second hand smoke exposure Acute Z77.22 Throat clearing Acute R68.89 Cough Acute R05 Impacted cerumen of right ear Acute H61.21 Post-nasal drip Acute R09.82 Medical History Medical History Left ankle pain Hip joint pain Chronic rhinitis Chronic cough Tobacco Smoking/Tobacco Use Status: Never Passive smoking exposure: No Alcohol Alcohol Intake: never Substance Use Substance use: Never Substance use type: does not use Vital Signs and Lab Results Vital Signs Most Recent Vital Signs in EMR: Most Recent Vital Signs Temp Pulse Resp BP Pulse Ox 35.9 C L 88 16 153/69 H 98 06/17/25 09:41 06/17/25 09:41 06/17/25 09:41 06/17/25 09:41 06/17/25 09:41 Lab Results Complete Blood Count: WBC, (4.4-10.8) 6.93 10^3/uL 05/31/25, 11:00 RBC, (3.93-5.22) 4.59 10^6/uL 05/31/25, 11:00 Hgb, (11.2-15.7) 12.4 g/dL 05/31/25, 11:00 Hct, (36.0-46.0) 37.8 % 05/31/25, 11:00 Plt Count, (130-400) 211 10^3/uL 05/31/25, 11:00 Complete Metabolic Panel: Sodium, (136-145) 140 mmol/L 05/31/25, 11:00 Potassium, (3.5-5.1) 3.4 mmol/L L 05/31/25, 11:00 Chloride, (98-107) 103 mmol/L 05/31/25, 11:00 Carbon Dioxide, (21.0-32.0) 25.7 mmol/L 05/31/25, 11:00 BUN, (7-18) 26 mg/dL H 05/31/25, 11:00 Creatinine, (0.55-1.02) 0.7 mg/dL 05/31/25, 11:00 Est GFR (CKD-EPI 2020), (mL/min/1.73m2) 90.70 05/31/25, 11:00 Calcium, (8.5-10.1) 8.6 mg/dL 05/31/25, 11:00 Albumin, (3.4-5.0) 3.5 g/dL 05/31/25, 11:00 Glucose, (74-106) 110 mg/dL H 05/31/25, 11:00 C-Reactive Protein, (<or=0.5) < 0.50 mg/dL 05/20/25, 11:40 Liver Function Panel: ALT, (14-59) 27 U/L 05/31/25, 11:00 AST, (15-37) 19 U/L 05/31/25, 11:00 Anesthesia Assessment and Plan Anesthesia History Personal History: No History of Anesthesia Complications Family History: No Family History of Anesthesia Complications Exercise Tolerance Exercise Tolerance: Metabolic Equivalents>4 Pertinent Negatives Pertinent Negatives: No Symptoms of GERD, No Major Cardiovascular Symptoms or Complaints, No Major Pulmonary Symptoms or Complaints and No History of CVA/TIA Cardiac & Pulmonary Exam Cardiac Exam: Normal S1/S2 Heart Sounds Pulmonary Exam: Clear Bilateral Breath Sounds Implantable Cardiac Device Does patient have a Pacemaker or an ICD?: No Airway Exam Known Difficult Airway: No Mallampati Class: 2 Mouth Opening: Normal (> 3cm) Thyromental Distance: Greater than 3 cm Neck Range of Motion: Full ROM Neck Circumference: Normal Teeth Condition: Normal Dentition ASA Classification ASA Score: ASA 2 Emergency Case?: No NPO Status NPO Status: NPO Clears >2 hours, Solids >8 hours Anesthesia Plan Resuscitation Status: Full Code Anesthesia Technique: General Anesthesia Airway Planned: Natural Airway Monitors Used: Standard Monitors
[2025-06-17] MEDS: ceFAZolin 2 GM/50 ML BAG IVPB (11:36)
[2025-06-17] MEDS: Lidocaine 1% Pres-Free 30 ML VIAL (11:44)
--- NOTE | 2025-06-17 11:59 | W.PM.DSUDISC ---
Date of service: 06/17/25 Discharge Plan Disposition Patient Disposition: Home Condition: Stable Discharge Details Attending Provider: Rohini Granados Primary Care Provider: Dereje Ugarte Home Meds and New Rx's Prescriptions: No Action ketoconazole 2 % cream 1 applic topical DAILY Qty: 120 6RF Rx Instructions: Apply to toenails once daily Santyl 250 unit/gram ointment 1 applic topical DAILY Qty: 90 0RF Rx Instructions: 1.5 x 2.5 x 0.3 cm gentamicin 0.1 % cream 1 applic topical QID Qty: 30 0RF gabapentin 300 mg capsule 300 mg PO QHS Qty: 14 0RF alendronate 70 mg tablet 70 mg PO DIRECTED Patient Comments: TAKE 1 TABLET BY MOUTH ONCE WEEKLY FIRST THING IN THE MORNING WITH WATER BEFORE EATING AND STAY UPRIGHT FOR 30 MINUTES hydrochlorothiazide 25 mg tablet 25 mg PO DAILY Patient Comments: TAKE ONE TABLET BY MOUTH EVERY DAY losartan 25 mg tablet 25 mg PO DAILY Patient Comments: TAKE ONE TABLET BY MOUTH EVERY DAY [place]-3 350 mg-235 mg- 90 mg-597 mg capsule,delayed release(DR/EC) 1 cap PO DAILY calcium carb,lactat-vitamin D3 200 mg-6.25 mcg (250 unit) tablet 1 tab PO DAILY rosuvastatin 20 mg tablet 10 mg PO DAILY Patient Comments: TAKE ONE TABLET BY MOUTH EVERY DAY Discharge Instructions Stand Alone Forms: Podiatry Instructions-DSU Activity:: Elevate Remove Dressings/Wound Care:: Do Not Remove Shower/Bathe:: Cover Diet:: As Tolerated Discharge Orders Discharge Orders: Discharge Order (Routine); Ordered 06/17/25 Ordered By: Rohini Granados DS: Diagnosis Discharge Diagnosis (1) Ulcer of left lower extremity: Status: Acute (2) Nonhealing ulcer of left lower extremity: Status: Acute (3) Chronic ulcer of left foot: Status: Acute (4) 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
--- NOTE | 2025-06-17 12:11 | W.ANESPOSTOP ---
Postoperative Evaluation Date, Time and Location Date Performed: 06/17/25 Time Performed: 12:11 Patient Location: PACU Vital Signs Most Recent Imported Vital Signs: Most Recent Vital Signs Temp Pulse Resp BP Pulse Ox 35.9 C L 88 16 153/69 H 98 06/17/25 09:41 06/17/25 09:41 06/17/25 09:41 06/17/25 09:41 06/17/25 09:41 Pain Score Most Recent Pain Score: Most Recent Pain Score Pain Level 0 06/17/25 09:41 Assessment Mental Status: Awake (Alert & Oriented to Patient Baseline) Airway and Respiratory Function: Patent airway with normal (patient baseline) respiratory exam Cardiovascular Function: Hemodynamically Stable Hydration Status: Adequately Hydrated Nausea & Vomiting: No Nausea or Vomiting Pain: Pt. Denies Any Pain Peripheral Nerve Block: Patient did not receive a nerve block
--- NOTE | 2025-06-17 12:18 | W.PM.OP ---
Operative Note Operative Note PRE-OP DIAGNOSIS: Nonhealing ulcer, left lower extremity POST-OP DIAGNOSIS: same PROCEDURE: Excisional debridement including fascia using Versajet left lower extremity. Predebridement measurements 3.8 cm x 1.7 cm, postdebridement measurements 4.0 cm x 1.8 cm x 4 mm deep SURGEON: Rohini Granados ANESTHESIA TYPE: Local By Surgeon (10 mL lidocaine plain 1% preop) Refer to Anesthesia Record ESTIMATED BLOOD LOSS: 2 COMPLICATIONS: None Patient was transported to: same day Patient's condition: stable Indications: Female patient for with chronic nonhealing ulcer to the left lower extremity. Patient requires excisional debridement in the OR for sedation due to level of pain. Findings: 100% necrotic base to the wound, fascia exposed. Postdebridement measurements 4.0 x 1.8 x 0.4 cm Procedure Description: Patient was brought to the operating room placed on the operating table in supine position. After induction of anesthesia, the left lower extremity was cleansed with alcohol and a local block was performed using 10 mL 1% lidocaine plain preoperatively. The left lower extremity was then scrubbed, prepped and draped in the usual aseptic manner. Versajet was used for excisional debridement of all necrotic, nonviable tissue until bleeding tissue was achieved. Some fascia was excised as well and passed from the operative field. Dressings were then applied with Xeroform gauze, 4 x 4, Kerlix and Coban for compression. Patient was transferred to same-day for further monitoring. She will be discharged home in stable. Patient has an appointment for follow-up in office Date of Procedure: 06/17/25
[2025-06-17] MEDS: Ibuprofen 800 MG TAB PO (13:05)
== END 2025-06-17 13:21 | disposition home or self-care (01) ==
PROVIDERS: PCP Student in an Organized Health Care Education/Training Program; Visit Provider Podiatrist
PROC: (CPT 11043; principal; 2025-06-17 11:30)
DX: I83.023 Varicose veins of left lower extremity with ulcer of ankle (principal); L97.322 Non-pressure chronic ulcer of left ankle with fat layer exposed; R73.03 Prediabetes
CPT/HCPCS: 11043; J0131; J0690; J1100; J2003; J2405; J2704; J3010

== ENCOUNTER → 2025-06-20 13:07 | Outpatient (BNVA) | payer MEDICARE, MEDICAID, SELFPAY | PROVIDERS: PCP Student in an Organized Health Care Education/Training Program; Referring Provider Student in an Organized Health Care Education/Training Program; Visit Provider Podiatrist | DX: Z98.890 Other specified postprocedural states (principal); Z51.89 Encounter for other specified aftercare; I83.029 Varicose veins of left lower extremity with ulcer of unspecified site; L97.922 Non-pressure chronic ulcer of unspecified part of left lower leg with fat layer exposed; I83.93 Asymptomatic varicose veins of bilateral lower extremities; R73.03 Prediabetes | CPT/HCPCS: 29581 ==

== ENCOUNTER → 2025-06-27 10:36 | Outpatient (BNVA) | payer MEDICARE, MEDICAID, SELFPAY | PROVIDERS: PCP Student in an Organized Health Care Education/Training Program; Referring Provider Student in an Organized Health Care Education/Training Program; Visit Provider Podiatrist | DX: Z51.89 Encounter for other specified aftercare (principal); I83.023 Varicose veins of left lower extremity with ulcer of ankle; L97.322 Non-pressure chronic ulcer of left ankle with fat layer exposed; R73.03 Prediabetes | CPT/HCPCS: 29581 ==

== ENCOUNTER → 2025-07-11 09:19 | Outpatient (BNVA) | payer MEDICARE, MEDICAID, SELFPAY | PROVIDERS: PCP Student in an Organized Health Care Education/Training Program; Referring Provider Student in an Organized Health Care Education/Training Program; Visit Provider Podiatrist | DX: Z98.890 Other specified postprocedural states (principal); I83.023 Varicose veins of left lower extremity with ulcer of ankle; L97.322 Non-pressure chronic ulcer of left ankle with fat layer exposed; R73.03 Prediabetes | CPT/HCPCS: 29581 ==

== ENCOUNTER → 2025-07-30 08:35 | Outpatient (BNVA) | payer MEDICARE, MEDICAID, SELFPAY | PROVIDERS: PCP Student in an Organized Health Care Education/Training Program; Referring Provider Student in an Organized Health Care Education/Training Program; Visit Provider Podiatrist | DX: Z98.890 Other specified postprocedural states (principal); L97.922 Non-pressure chronic ulcer of unspecified part of left lower leg with fat layer exposed; I83.023 Varicose veins of left lower extremity with ulcer of ankle; R73.03 Prediabetes; I82.402 Acute embolism and thrombosis of unspecified deep veins of left lower extremity | CPT/HCPCS: 99214 ==